=== PATIENT | female | born 1955 | race Caucasian/White ===

== ENCOUNTER 2017-04-12 11:45 | Inpatient (IN) | payer OTHER ==
[2017-04-12] MEDS ORDERED: Lorazepam 2 MG/ML VIAL ONE ×2 (11:55→12:36)
[2017-04-12] MEDS ORDERED: Haloperidol Lactate 5 MG/ML VIAL ONE ×2 (12:23→12:56)
[2017-04-12 12:47] LABS: #Eosinphils 0.1 thou/uL (0.0-0.7); #Lymphocytes 1.6 thou/uL (1.20-3.40); #Monocytes 1.1 thou/uL (0.11-0.59); #Neutrophils 5.2 thou/uL (1.40-6.50); %Basophils 0.6 % (0.0-1.0); %Eosinophils 0.6 % (0.0-10.0); %Lymphocytes 19.8 % (21.0-51.0); %Monocytes 13.4 % (0.0-10.0); Hematocrit 35.7 % (36.0-47.0); Mean Platelet Volume 7.4 fL (7.4-10.4); Red Blood Cell (RBC) Count 4.69 mill/uL (4.20-5.40)
[2017-04-12 13:03] LABS: ALT (SGPT) 28 U/L (8-55); AST (SGOT) 39 U/L (5-34); Alkaline Phosphatase 193 U/L (40-150); Anion Gap 21 mmol/L (10-20); BUN (Urea Nitrogen) 4 mg/dL (9.8-20.1); Bilirubin, Total 0.4 mg/dL (0.2-1.2); Calc. Creatinine Clearance 0 mL/min (70-130); Calcium 9.1 mg/dL (7.8-10.44); Carbon Dioxide 18 mmol/L (22-29); Chloride 93 mmol/L (98-107); Estimated GFR-MDRD 82; Globulin 3.8 g/dL (2.4-3.5); Protein, Total 7.6 g/dL (6.0-8.3)
[2017-04-12 13:09] LABS: Troponin I Less than 0.010 ng/mL (< 0.028)
--- NOTE | 2017-04-12 15:31 | CT ---
CT HEAD NONCONTRAST: HISTORY: Seizure. COMPARISON: 09/11/13. FINDINGS: No acute intracranial hemorrhage or infarct are apparent. Postoperative and posttraumatic changes o f the left cranium and cerebrum are similar in appearance to the prior study with intracranial embed ded metallic foreign bodies. There is no mass effect or shift of midline structures. Visualized pa ranasal sinuses remain well aerated. IMPRESSION: Chronic-type findings are stable. No acute intracranial abnormalities are demonstrated on noncontra st CT head. POS: [facility]
[2017-04-12 16:31] LABS: Bilirubin Negative (Negative); Blood, Urine Negative (Negative); Glucose, Urine (Dipstick) Negative (Negative); Ketone, Urine Negative (Negative); Nitrite Negative (Negative); Protein, Urine (Dipstick) Negative (Neg-Trace); Urobilinogen 0.2 mg/dL (0.2-1.0)
[2017-04-12 16:34] LABS: Bacteria/HPF None Seen HPF (None Seen); Hyaline Casts/LPF 0-3 HYALINE CAST LPF (0-3 Hyaline); RBC/HPF None Seen HPF (0-3); Squamous Epithelial 0-3 HPF (0-3); WBC/HPF 0-3 HPF (0-3)
[2017-04-12 16:47] LABS: Amphetamine Not Detected (NotDetected); Methadone Not Detected (NotDetected); Methamphetamine Not Detected (NotDetected)
[2017-04-12] MEDS ORDERED: Ziprasidone 20 MG VIAL IM PRN (17:25)
--- NOTE | 2017-04-12 17:45 | PDOC.EVN ---
Event Note - Event Note Event Note: pt seen and examined , H & P dictated # [id number]
[2017-04-12] MEDS ORDERED: Digoxin 0.5 MG/2 ML AMP SLOW IVP SCH (18:15)
[2017-04-12] MEDS ORDERED: Ondansetron ODT 4 MG TAB SL PRN (18:58)
[2017-04-12] MEDS ORDERED: Ondansetron HCl/PF 4 MG/2 ML Vial IVP PRN (18:58)
[2017-04-12] MEDS ORDERED: Acetaminophen 325 MG TAB PO PRN (18:58)
--- NOTE | 2017-04-12 19:01 | PDOC.EVN ---
Event Note - Event Note Event Note: UDS results noted. BP improved but pt noted to have A fib with RVR. we will give IV digoxin and move her to IMCU.
[2017-04-12] MEDS: Sodium Chloride 0.9% 1,000 ML IV SCH (19:06)
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
[2017-04-12 21:32] LABS: #Lymphocytes 1.2 thou/uL (1.20-3.40); #Neutrophils 6.9 thou/uL (1.40-6.50); %Basophils 0.1 % (0.0-1.0); %Eosinophils 0.2 % (0.0-10.0); %Lymphocytes 13.2 % (21.0-51.0); %Monocytes 10.7 % (0.0-10.0); Mean Platelet Volume 7.3 fL (7.4-10.4); Red Blood Cell (RBC) Count 4.47 mill/uL (4.20-5.40); White Blood Cell (WBC) Count 9.2 thou/uL (4.8-10.8)
[2017-04-12 21:49] LABS: Anion Gap 11 mmol/L (10-20); BUN (Urea Nitrogen) Less than 4 mg/dL (9.8-20.1); Calc. Creatinine Clearance 132 mL/min (70-130); Calcium 8.4 mg/dL (7.8-10.44); Carbon Dioxide 23 mmol/L (22-29); Chloride 102 mmol/L (98-107); Estimated GFR-MDRD Greater than 90
[2017-04-13] MEDS: Sodium Chloride 0.9% 1,000 ML IV SCH ×3 (04:07→21:02)
[2017-04-13] MEDS ORDERED: FLU VACC QS2017-18 36 mo. & older 0.5 ML SYRINGE IM ONE (09:00)
[2017-04-13] MEDS ORDERED: HYDROcodone/Acetaminophen 5/325 mg Tablet PO SCH (11:00)
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
[2017-04-13] MEDS: Isosorbide Mononitrate 20 MG TAB PO SCH (21:03)
[2017-04-13] MEDS: Atorvastatin Calcium 20 MG TAB PO SCH (21:03)
[2017-04-13] MEDS: Nicotine 21 MG PATCH TOP SCH (23:23)
[2017-04-14] MEDS: Lisinopril 5 MG TAB PO SCH (07:43)
[2017-04-14] MEDS: Isosorbide Mononitrate 20 MG TAB PO SCH ×2 (07:48→20:37)
[2017-04-14] MEDS: Sodium Chloride 0.9% 1,000 ML IV SCH ×2 (09:12→20:37)
--- NOTE | 2017-04-14 11:29 | PRG ---
DATE OF SERVICE: 04/14/2017 She was seen this morning. She wanted a sleeping pill. She says she only slept 3 hours last night. I have explained to her that she overdosed and she argued with me, stating that that would be impo ssible. I suspect the primary culprit with her overdose was Soma. PHYSICAL EXAMINATION: VITAL SIGNS: She is afebrile, heart rate is 90, respiratory rate 18, oximetry 92 on room air. Bloo d pressure 131/83. LUNGS: Clear. HEART: Regular rhythm. IMPRESSION: Inadvertent overdoses with a history of injudicious use of her pain meds. She really needs somebody managing her meds on a daily basis in my opinion. I have not seen any fam ortiz here since she has been here. She is medically stable at this point, so we will sign off.
[2017-04-14] MEDS: ALPRAZolam 0.5 MG TAB PO PRN ×2 (13:49→20:44)
--- NOTE | 2017-04-14 15:25 | PDOC.PN ---
- Subjective Encounter Start Date: 04/14/17 Encounter Start Time: 13:00 Subjective: is ambulating -: wants her xanax and norco re-instituted -: no sob - Objective MAR Reviewed: Yes Vital Signs & Weight: Vital Signs (12 hours) Temp Pulse Resp BP BP Pulse Ox 04/14/17 12:01 98.3 F 74 18 151/81 H 92 L 04/14/17 11:42 77 18 93 L 04/14/17 08:00 99.5 F 90 18 131/83 92 L 04/14/17 07:59 98.4 F 98 16 159/84 H 96 04/14/17 07:43 70 159/84 H 04/14/17 06:48 70 18 94 L 04/14/17 03:24 98.3 F 72 18 155/72 H 95 Weight Weight 171 lb 9.584 oz I&O: 04/13/17 04/14/17 04/15/17 06:59 06:59 06:59 Intake Total 1820 Balance 1820 Result Diagrams: 04/12/17 21:22 04/12/17 21:22 Phys Exam - Physical Examination HEENT: PERRLA, moist MMs Neck: no JVD, supple Respiratory: no wheezing, no rales Cardiovascular: RRR, no significant murmur Gastrointestinal: soft, non-tender, positive bowel sounds Musculoskeletal: no edema, pulses present Neurological: non-focal, moves all 4 limbs Psychiatric: A&O x 3 Dx/Plan (1) Drug overdose Code(s): T50.901A - POISONING BY UNSP DRUG/MEDS/BIOL SUBST, ACCIDENTAL, INIT Status: Acute (2) Afib Code(s): I48.91 - UNSPECIFIED ATRIAL FIBRILLATION Status: Chronic Qualifiers: Atrial fibrillation type: paroxysmal Qualified Code(s): I48.0 - Paroxysmal atrial fibrillation (3) Toxic encephalopathy Code(s): G92 - TOXIC ENCEPHALOPATHY Status: Resolved (4) Anemia Code(s): D64.9 - ANEMIA, UNSPECIFIED Status: Chronic Qualifiers: Anemia type: unspecified cause Qualified Code(s): D64.9 - Anemia, unspecified (5) GERD (gastroesophageal reflux disease) Code(s): K21.9 - GASTRO-ESOPHAGEAL REFLUX DISEASE WITHOUT ESOPHAGITIS Status: Chronic (6) HLD (hyperlipidemia) Code(s): E78.5 - HYPERLIPIDEMIA, UNSPECIFIED Status: Chronic (7) Hepatitis C Code(s): B19.20 - UNSPECIFIED VIRAL HEPATITIS C WITHOUT HEPATIC COMA Status: Chronic Qualifiers: Viral hepatitis chronicity: chronic Hepatic coma status: without hepatic coma Qualified Code(s): B18.2 - Chronic viral hepatitis C (8) Tobacco abuse Code(s): Z72.0 - TOBACCO USE Status: Chronic (9) CAD (coronary artery disease) Code(s): I25.10 - ATHSCL HEART DISEASE OF [place] CORONARY ARTERY W/O ANG PCTRS Status: Chronic Qualifiers: Coronary Disease-Associated Artery/Lesion type: [place] artery [place] vs. transplanted heart: [place] heart Associated angina: without angina Qualified Code(s): I25.10 - Atherosclerotic heart disease of [place] coronary artery without angina pectoris (10) Chronic pain disorder Status: Chronic (11) Dyslipidemia Code(s): E78.5 - HYPERLIPIDEMIA, UNSPECIFIED Status: Chronic (12) Grand mal seizure disorder Code(s): G40.409 - OTH GENERALIZED EPILEPSY, NOT INTRACTABLE, W/O STAT EPI Status: Chronic Comment: sec to prior brain surgery on her left side, stable (13) HTN (hypertension) Code(s): I10 - ESSENTIAL (PRIMARY) HYPERTENSION Status: Chronic Qualifiers: Hypertension type: essential hypertension Qualified Code(s): I10 - Essential (primary) hypertension - Plan is awake and oriented now -: counselled reg psychotropic meds -: still wants her xanax and norco -: dc plan in am -: she needs to f/u with her pcp in 1 week * . Review of Systems - Medications/Allergies Allergies/Adverse Reactions: Allergies Allergy/AdvReac Type Severity Reaction Status Date / Time Penicillins Allergy Verified 04/12/17 22:08 Medications: Current Medications Hydrocodone Bitart/Acetaminophen ([place] 7.5/325) 1 tab PO Q4H PRN PRN Reason: Mild Pain (1-3) Albuterol/Ipratropium (Duoneb) 3 ml NEB [id number] LEIF Last Admin: 04/14/17 11:42 Dose: 3 ml Albuterol/Ipratropium (Duoneb) 3 ml NEB Q2H PRN PRN Reason: SOB &/or Wheezing Alprazolam (Xanax) 0.5 mg PO TIDPRN PRN PRN Reason: Anxiety Last Admin: 04/14/17 13:49 Dose: 0.5 mg Atorvastatin Calcium (Lipitor) 20 mg PO HS [facility] Last Admin: 04/13/17 21:03 Dose: 20 mg Carisoprodol (Soma) 350 mg PO BID [facility] Last Admin: 04/14/17 09:09 Dose: 350 mg Diltiazem HCl (Cardizem Cd) 180 mg PO DAILY [facility] Last Admin: 04/14/17 07:41 Dose: 180 mg Sodium Chloride (Normal Saline 0.9%) 1,000 mls @ 100 mls/hr IV .Q10H [facility] Last Admin: 04/14/17 09:12 Dose: 1,000 mls Isosorbide Mononitrate (Ismo) 10 mg PO BID [facility] Last Admin: 04/14/17 07:48 Dose: 10 mg Lisinopril (Zestril) 5 mg PO DAILY [facility] Last Admin: 04/14/17 07:43 Dose: 5 mg Nicotine (Nicoderm Patch) 21 mg TOP Q24HR [facility] Last Admin: 04/13/17 23:23 Dose: Not Given Pantoprazole Sodium (Protonix) 40 mg PO DAILY [facility] Last Admin: 04/14/17 07:49 Dose: 40 mg Phenytoin Sodium (Dilantin) 100 mg PO TID [facility] Last Admin: 04/14/17 13:48 Dose: 100 mg Sertraline HCl (Zoloft) 100 mg PO DAILY [facility] Last Admin: 04/14/17 07:48 Dose: 100 mg Sodium Chloride (Flush - Normal Saline) 10 ml IVF Q12HR [facility] Last Admin: 04/14/17 07:49 Dose: Not Given Sodium Chloride (Flush - Normal Saline) 10 ml IVF PRN PRN PRN Reason: Saline Flush
[2017-04-14] MEDS: HYDROcodone/Acetaminophen 7.5/325 mg Tablet PO PRN ×2 (15:27→20:44)
[2017-04-14] MEDS: Nicotine 21 MG PATCH TOP SCH (19:08)
[2017-04-14] MEDS: Atorvastatin Calcium 20 MG TAB PO SCH (20:37)
[2017-04-15] MEDS: Sodium Chloride 0.9% 1,000 ML IV SCH (04:03)
[2017-04-15 04:17] VITALS: BMI 28.6
[2017-04-15] MEDS: ALPRAZolam 0.5 MG TAB PO PRN ×2 (07:38→13:13)
[2017-04-15] MEDS: HYDROcodone/Acetaminophen 7.5/325 mg Tablet PO PRN ×2 (07:38→13:12)
[2017-04-15] MEDS: Lisinopril 5 MG TAB PO SCH (07:38)
[2017-04-15] MEDS: Isosorbide Mononitrate 20 MG TAB PO SCH (07:39)
[2017-04-15 07:42] VITALS: BP 162/62; TEMP 97.9
--- NOTE | 2017-04-15 12:26 | PDOC.PN ---
- Subjective Encounter Start Date: 04/15/17 Encounter Start Time: 10:20 Subjective: no sob, is amb well - Objective MAR Reviewed: Yes Vital Signs & Weight: Vital Signs (12 hours) Temp Pulse Resp BP Pulse Ox 04/15/17 08:00 97.9 F 50 L 16 04/15/17 07:41 97.9 F 50 L 16 162/62 H 100 04/15/17 07:38 70 04/15/17 07:18 78 18 97 04/15/17 01:32 98 Weight Weight 171 lb 13.746 oz I&O: 04/14/17 04/15/17 04/16/17 06:59 06:59 06:59 Intake Total 1350 Balance 1350 Result Diagrams: 04/12/17 21:22 04/12/17 21:22 Phys Exam - Physical Examination HEENT: PERRLA, moist MMs Neck: no JVD, supple Respiratory: no wheezing, no rales Cardiovascular: RRR, no significant murmur Gastrointestinal: soft, non-tender, positive bowel sounds Musculoskeletal: no edema, pulses present Neurological: non-focal, moves all 4 limbs Psychiatric: A&O x 3 Dx/Plan (1) Drug overdose Code(s): T50.901A - POISONING BY UNSP DRUG/MEDS/BIOL SUBST, ACCIDENTAL, INIT Status: Acute (2) Afib Code(s): I48.91 - UNSPECIFIED ATRIAL FIBRILLATION Status: Chronic Qualifiers: Atrial fibrillation type: paroxysmal Qualified Code(s): I48.0 - Paroxysmal atrial fibrillation (3) Toxic encephalopathy Code(s): G92 - TOXIC ENCEPHALOPATHY Status: Resolved (4) Anemia Code(s): D64.9 - ANEMIA, UNSPECIFIED Status: Chronic Qualifiers: Anemia type: unspecified cause Qualified Code(s): D64.9 - Anemia, unspecified (5) GERD (gastroesophageal reflux disease) Code(s): K21.9 - GASTRO-ESOPHAGEAL REFLUX DISEASE WITHOUT ESOPHAGITIS Status: Chronic (6) HLD (hyperlipidemia) Code(s): E78.5 - HYPERLIPIDEMIA, UNSPECIFIED Status: Chronic (7) Hepatitis C Code(s): B19.20 - UNSPECIFIED VIRAL HEPATITIS C WITHOUT HEPATIC COMA Status: Chronic Qualifiers: Viral hepatitis chronicity: chronic Hepatic coma status: without hepatic coma Qualified Code(s): B18.2 - Chronic viral hepatitis C (8) Tobacco abuse Code(s): Z72.0 - TOBACCO USE Status: Chronic (9) CAD (coronary artery disease) Code(s): I25.10 - ATHSCL HEART DISEASE OF [place] CORONARY ARTERY W/O ANG PCTRS Status: Chronic Qualifiers: Coronary Disease-Associated Artery/Lesion type: [place] artery [place] vs. transplanted heart: [place] heart Associated angina: without angina Qualified Code(s): I25.10 - Atherosclerotic heart disease of [place] coronary artery without angina pectoris (10) Chronic pain disorder Status: Chronic (11) Dyslipidemia Code(s): E78.5 - HYPERLIPIDEMIA, UNSPECIFIED Status: Chronic (12) Grand mal seizure disorder Code(s): G40.409 - OTH GENERALIZED EPILEPSY, NOT INTRACTABLE, W/O STAT EPI Status: Chronic Comment: sec to prior brain surgery on her left side, stable (13) HTN (hypertension) Code(s): I10 - ESSENTIAL (PRIMARY) HYPERTENSION Status: Chronic Qualifiers: Hypertension type: essential hypertension Qualified Code(s): I10 - Essential (primary) hypertension - Plan hemostable -: is fully oriented and amb well -: dc pt home * .
[2017-04-15] MEDS ORDERED: Mag-Al 1200 mg/1200 mg/30 ML UDCUP PO SCH (16:45)
--- NOTE | 2017-04-15 23:28 | DIS ---
DATE OF ADMISSION: 04/12/2017 DATE OF DISCHARGE: 04/15/2017 DISCHARGE DISPOSITION: To home. PRIMARY DISCHARGE DIAGNOSES: Drug overdose with encephalopathy, resolved, chronic atrial fibrillati on, anemia, dyslipidemia, possible hepatitis C, gastroesophageal reflux disease, tobacco abuse, juan nary artery disease, chronic pain syndrome, dyslipidemia, history of seizure disorder with prior bra in surgery on the left side, hypertension. PROCEDURES DONE DURING HOSPITALIZATION: The patient has had CT brain done, which showed chronic fin dings with no acute abnormalities seen. Discharge H\T\H 10 and 34 with platelet count of 302, MCV o f 76. Initial sodium of 127 with discharge numbers of 132. Urine tox screen was positive for nancy turates and benzodiazepines. DISCHARGE MEDICATIONS: Atorvastatin 20 mg p.o. daily, Soma 350 mg p.o. 3 times daily, Cardizem CD 1 80 mg p.o. daily, Imdur extended release 30 mg p.o. daily, lisinopril 5 mg p.o. daily, Protonix 40 m g p.o. daily, Dilantin 200 mg q.a.m. and 100 mg p.o. at bedtime, rizatriptan p.r.n. for migraine, Zo loft 100 mg p.o. daily, zonisamide 100 mg p.o. at bedtime. ALLERGIES: To PENICILLIN. DISCHARGE PLAN: Patient to follow up with primary care physician in 1 week. BRIEF COURSE DURING HOSPITALIZATION: The patient initially was brought to emergency room for silverio d mental state. She was agitated when EMS arrived and the patient's niece had told EMS that she had taken a lot of Soma. In view of this possible overdose, the patient was placed in IMCU and later d owngraded to medical floor. Twenty-four hours into hospitalization with gentle hydration, the patie nt became oriented. She was closely monitored for another 24 hours. All her labs including sodium levels have normalized. She is ambulating and eating well prior to discharge. She needs to follow up with her primary care physician in 1 week. She was counseled with regards to narcotic use along with psychotropic medications. She was also evaluated by Dr. Bergeron when she was in [facility]. She is he modynamically stable and will be shortly discharged home. Please see a [id number] documentation o [facility] for the day of discharge.
== END 2017-04-15 17:40 | disposition home or self-care (01) | DRG 917 ==
LOC: ERS 11:45 → T4-A 18:07 → IMCU/EMU 18:53 → T4-B 04-13 18:45
PROVIDERS: ADMIT Internal Medicine; ATTEND Internal Medicine
DX: T42.8X1A Poisoning by antiparkinsonism drugs and other central muscle-tone depressants, accidental (unintentional), initial encounter (principal); G92 Toxic encephalopathy; E88.89 Other specified metabolic disorders; E87.1 Hypo-osmolality and hyponatremia; K74.60 Unspecified cirrhosis of liver; I10 Essential (primary) hypertension; I48.0 Paroxysmal atrial fibrillation; F10.10 Alcohol abuse, uncomplicated; D50.9 Iron deficiency anemia, unspecified; G40.409 Other generalized epilepsy and epileptic syndromes, not intractable, without status epilepticus; F32.9 Major depressive disorder, single episode, unspecified; E86.0 Dehydration; B19.20 Unspecified viral hepatitis C without hepatic coma; G89.4 Chronic pain syndrome; Z90.710 Acquired absence of both cervix and uterus; Z90.721 Acquired absence of ovaries, unilateral; Z88.0 Allergy status to penicillin; Z72.0 Tobacco use; F19.10 Other psychoactive substance abuse, uncomplicated; R00.0 Tachycardia, unspecified; S80.819A Abrasion, unspecified lower leg, initial encounter; I25.10 Atherosclerotic heart disease of native coronary artery without angina pectoris; Z91.14 Patient's other noncompliance with medication regimen; T73.0XXA Starvation, initial encounter; K21.9 Gastro-esophageal reflux disease without esophagitis; E78.5 Hyperlipidemia, unspecified
CPT/HCPCS: 36415; 51701; 70450; 80053; 80306; 81003; 81015; 82140; 82553; 84484; 85025; 90471; 90682; 93005; 94640; 94760; 96361; 96372; 96374; 96376; A4216; A4353; G0008; J1630; J2060; J7620; Q2036

== ENCOUNTER 2017-06-09 09:19 | Emergency (ER) | payer OTHER ==
[2017-06-09] MEDS ORDERED: traMADol HCl 50 MG TAB ONE (10:34)
--- NOTE | 2017-06-09 10:38 | RAD ---
THREE VIEWS OF THE LEFT WRIST: DATE: 06/09/17. COMPARISON: None. HISTORY: Wrist pain, fall. FINDINGS: There is a mildly impacted distal left radial fracture. There is minimal dorsal displacement with no evidence for angulation. No definite extension into the radiocarpal joint. There is a probable ass ociated nondisplaced fracture at the base of the ulnar styloid. There is significant soft tissue swe lling. IMPRESSION: Distal left radial fracture without dislocation. Question subtle nondisplaced fracture at base of ul baudilio styloid. POS: [facility]
== END 2017-06-09 16:48 | disposition home or self-care (01) ==
LOC: ERS 09:19
DX: S52.502A Unspecified fracture of the lower end of left radius, initial encounter for closed fracture (principal); I10 Essential (primary) hypertension; E78.5 Hyperlipidemia, unspecified; F17.210 Nicotine dependence, cigarettes, uncomplicated; F41.9 Anxiety disorder, unspecified; W11.XXXA Fall on and from ladder, initial encounter
CPT/HCPCS: 29125

== ENCOUNTER 2017-07-03 21:58 | Emergency (ER) | payer OTHER ==
[2017-07-03 23:16] LABS: Bilirubin Negative (Negative); Blood, Urine Negative (Negative); Clarity CLEAR (Clear); Glucose, Urine (Dipstick) Negative (Negative); Leukocyte Negative (Negative); Nitrite Negative (Negative); Protein, Urine (Dipstick) Negative (Neg-Trace); Specific Gravity, Urine 1.012 (1.002-1.036); Urobilinogen 0.2 mg/dL (0.2-1.0); pH, Urine 6.5 (5.0-9.0)
--- NOTE | 2017-07-03 23:16 | CT ---
CT OF BRAIN PERFORMED WITHOUT CONTRAST ENHANCEMENT: 07/03/17 HISTORY: Altered mental status. Patient found unresponsive. The exam was done as a helical study due to patient's inability to cooperate. COMPARISON: 04/12/17 study. Left sided frontal temporal craniotomy changes noted with underlying encephalomalacia change stable a s compared to the prior examination. Metallic artifact is again demonstrated. There are no signs of i ntracerebral hemorrhage, or extra-axial fluid collections. Mastoid air cells and visualized sinuses a re clear. IMPRESSION: No acute intracranial abnormalities. Postoperative changes. POS: [facility]
[2017-07-03 23:18] LABS: Band 1 % (5-11); Eosinophils 2 % (0-10); Hemoglobin 10.5 g/dL (12.0-16.0); Lymphocytes 39 % (21-51); MDiff Complete? YES; Mean Corpuscular HGB CONC 31.5 g/dL (32.0-36.0); Mean Corpuscular Hemoglobin 24.7 pg (27.0-31.0); Mean Corpuscular Volume 78.4 fl (81.0-99.0); Mean Platelet Volume 7.2 fL (7.4-10.4); Monocytes 11 % (0-10); Neutrophil 47 % (42-75); PLT Morphology Comment Appears Adequate; Platelet Count 287 thou/uL (130-400); RBC Distribution Width 17.4 % (11.5-14.5); Red Blood Cell (RBC) Count 4.24 mill/uL (4.20-5.40); White Blood Cell (WBC) Count 6.4 thou/uL (4.8-10.8)
--- NOTE | 2017-07-03 23:19 | CT ---
CT OF CERVICAL SPINE PERFORMED WITHOUT CONTRAST ENHANCEMENT: 07/03/17 HISTORY: Neck pain. Altered mental status. Vertebral bodies are normal in height. Degenerative disc narrowing is seen at the C3-4 and C5-6 level s. There are moderate degenerative facet changes. The facets are in normal alignment. Left sided foraminal narrowing at C3-4 and right sided foraminal narrowing at C4-5. There is mild can al stenosis and bilateral foraminal narrowing at C5-6. There is no CT evidence for fracture. The lung apices show emphysematous change. IMPRESSION: No CT evidence of fracture. Arthritic changes as discussed above. POS: [facility]
[2017-07-03 23:20] LABS: Acetaminophen Less than 6.0 mcg/mL (10.0-30.0); Alcohol Less than 10 mg/dL (Less than 10); Salicylate Less than 8.0 mg/dL (15.0-30.0)
[2017-07-03 23:21] LABS: ALT (SGPT) 35 U/L (8-55); AST (SGOT) 36 U/L (5-34); Albumin 3.6 g/dL (3.5-5.0); Alkaline Phosphatase 181 U/L (40-150); Anion Gap 12 mmol/L (10-20); BUN (Urea Nitrogen) 8 mg/dL (9.8-20.1); Bilirubin, Total 0.3 mg/dL (0.2-1.2); CK (CPK) 51 U/L (29-168); Calc. Creatinine Clearance 0 mL/min (70-130); Carbon Dioxide 23 mmol/L (22-29); Chloride 93 mmol/L (98-107); Estimated GFR-MDRD Greater than 90; Globulin 3.1 g/dL (2.4-3.5); Glucose 94 mg/dL (70-105); Potassium 3.6 mmol/L (3.5-5.1); Protein, Total 6.7 g/dL (6.0-8.3); Sodium 124 mmol/L (136-145)
[2017-07-03 23:23] LABS: CKMB 0.9 ng/mL (0-6.6); Troponin I 0.014 ng/mL (< 0.028)
[2017-07-03 23:33] LABS: Cocaine Metabolite Screen Not Detected (NotDetected); Medtox Reader # READER 1; Methamphetamine Not Detected (NotDetected); Phencyclidine (PCP) Not Detected (NotDetected); THC/Cannabinoid Screen Not Detected (NotDetected)
[2017-07-03] MEDS ORDERED: Ketorolac Tromethamine 30 MG/ML VIAL ONE (23:33)
[2017-07-03 23:34] LABS: Amphetamine Not Detected (NotDetected); Barbiturates Screen Detected (NotDetected); Benzodiazepine Screen Detected (NotDetected); Medtox Control Line Valid? VALID (VALID); Methadone Not Detected (NotDetected); Opiate Screen Detected (NotDetected); Oxycodone Screen Not Detected (NotDetected); Tricyclic Screen Detected (NotDetected)
== END 2017-07-04 02:04 | disposition home or self-care (01) ==
LOC: ERS 21:58
DX: R53.83 Other fatigue (principal); I10 Essential (primary) hypertension; E78.5 Hyperlipidemia, unspecified; F41.9 Anxiety disorder, unspecified; F17.210 Nicotine dependence, cigarettes, uncomplicated
CPT/HCPCS: 36415; 70450; 72125; 80053; 80306; 80307; 81003; 82553; 84484; 85025; 87086; 96361; 96374; J1885

== ENCOUNTER 2017-11-26 15:44 | Inpatient (IN) | payer OTHER ==
[2017-11-26] MEDS ORDERED: Sodium Bicarb 50 MEQ/50 ML Abboject 8.4% SYRINGE ONE (15:53)
[2017-11-26 15:58] LABS: CO2 Tension 34.4 mmHg (35.0-45.0); O2 Tension (PaO2) 226.2 mmHg (80.0-100.0); pH, Arterial 7.17 (7.35-7.45)
[2017-11-26 15:59] LABS: Actual Bicarbonate (HCO3a) 12.2 mEq/L (22-26); Base Excess (BEa) -15.4 mEq/L (0 (+/-) 2.5)
[2017-11-26 16:00] LABS: Analyzer IN Cardio ER; Puncture Site RRA
[2017-11-26 16:04] LABS: #Basophils 0.1 thou/uL (0.0-0.2); #Eosinphils 0.1 thou/uL (0.0-0.7); #Lymphocytes 3.1 thou/uL (1.20-3.40); #Monocytes 0.8 thou/uL (0.11-0.59); #Neutrophils 5.5 thou/uL (1.40-6.50); %Basophils 0.6 % (0.0-1.0); %Eosinophils 0.8 % (0.0-10.0); %Lymphocytes 32.3 % (21.0-51.0); %Monocytes 8.8 % (0.0-10.0); %Neutrophils 57.5 % (42.0-75.0); Hemoglobin 12.8 g/dL (12.0-16.0); Mean Corpuscular HGB CONC 32.5 g/dL (32.0-36.0); Mean Corpuscular Hemoglobin 27.3 pg (27.0-31.0); Mean Platelet Volume 6.8 fL (7.4-10.4); Platelet Count 330 thou/uL (130-400); RBC Distribution Width 14.1 % (11.5-14.5); Red Blood Cell (RBC) Count 4.68 mill/uL (4.20-5.40); White Blood Cell (WBC) Count 9.6 thou/uL (4.8-10.8)
[2017-11-26 16:07] LABS: Base Excess-Venous -16.5 mmol/L (0 (+/- 2.5)); Bicarbonate (HCO3v) 10.7 mmol/L (1.0-85.0); CO2 Tension (PvCO2) 29.5 mmHg (41.0-51.0); Calcium, Ionized 1.13 mmol/L (1.12-1.32); Hemoglobin - Calc 14.8 g/dL (12.0-18.0); Lactate 8.23 mmol/L (0.50-2.20); O2 Tension (PvO2) 121.4 mmHg (35.0-45.0); Potassium 4.6 mmol/L (3.4-4.7); T. Carbon Dioxide 11.6 mmol/L (1.0-85.0); pH (Venous) 7.168 (7.35-7.45); vO2 Saturation-calc 97.6 % (94-98)
[2017-11-26] MEDS ORDERED: Norepinephrine 8 MG/0.9% NS 250 ML ONE (16:15)
[2017-11-26] MEDS ORDERED: fentaNYL Citrate/PF 2,000 MCG in Sodium Chloride 0.9% 60 ML IV SCH (16:15)
[2017-11-26 16:24] LABS: Acetaminophen Less than 6.0 mcg/mL (10.0-30.0); Alcohol Less than 10 mg/dL (Less than 10); Salicylate Less than 8.0 mg/dL (15.0-30.0)
[2017-11-26 16:26] LABS: ALT (SGPT) 37 U/L (8-55); AST (SGOT) 48 U/L (5-34); Albumin 2.9 g/dL (3.5-5.0); Alkaline Phosphatase 152 U/L (40-150); Anion Gap 16 mmol/L (10-20); BUN (Urea Nitrogen) 9 mg/dL (9.8-20.1); Bilirubin, Total 0.3 mg/dL (0.2-1.2); Calc. Creatinine Clearance 0 mL/min (70-130); Calcium 8.3 mg/dL (7.8-10.44); Carbon Dioxide 10 mmol/L (22-29); Chloride 89 mmol/L (98-107); Estimated GFR-MDRD 76; Globulin 2.2 g/dL (2.4-3.5); Glucose 214 mg/dL (70-105); Potassium 4.8 mmol/L (3.5-5.1); Protein, Total 5.1 g/dL (6.0-8.3)
--- NOTE | 2017-11-26 16:27 | RAD ---
CHEST ONE VIEW: History: Altered mental status. Dyspnea. Comparison: 06-17-17 FINDINGS: Cardiac silhouette is magnified and upper limits of normal. Pulmonary vasculature is engorged with bi lateral upper lobe infiltrate and patchy bibasilar infiltrates. Mediastinum midline. Tip of an endotr acheal catheter overlies the thoracic inlet. No evidence of pneumothorax. Defibrillator patch overlie s the right upper chest. IMPRESSION: 1. Bilateral upper lobe infiltrates are favored to be related to pulmonary edema. 2. Endotracheal catheter is in good radiographic position. POS: [facility]
[2017-11-26 16:29] LABS: CKMB 3.4 ng/mL (0-6.6); Troponin I 0.029 ng/mL (< 0.028)
[2017-11-26 16:37] LABS: Sodium 110 mmol/L (136-145)
[2017-11-26] MEDS ORDERED: Levofloxacin 500 mg/D5W 100 ml Premix Bag ONE (16:47)
[2017-11-26 17:36] LABS: Bilirubin Negative (Negative); Blood, Urine Trace (Negative); Clarity CLEAR (Clear); Glucose, Urine (Dipstick) Negative (Negative); Leukocyte Negative (Negative); Nitrite Negative (Negative); Protein, Urine (Dipstick) 100 mg/dL (Neg-Trace); Specific Gravity, Urine 1.012 (1.002-1.036); Urobilinogen 0.2 mg/dL (0.2-1.0)
[2017-11-26 17:43] LABS: Bacteria/HPF None Seen HPF (None Seen); Hyaline Casts/LPF 4-6 HYALINE CAST LPF (0-3 Hyaline); Pathc Cast-AUWi Flag 0.87 (0-2.49); RBC/HPF 0-3 HPF (0-3); Squamous Epithelial 0-3 HPF (0-3); WBC/HPF 0-3 HPF (0-3)
[2017-11-26 17:46] LABS: Amphetamine Not Detected (NotDetected); Benzodiazepine Screen Not Detected (NotDetected); Cocaine Metabolite Screen Not Detected (NotDetected); Medtox Reader # READER 4; Methamphetamine Not Detected (NotDetected); Opiate Screen Not Detected (NotDetected); Phencyclidine (PCP) Not Detected (NotDetected); Renal Epithelial None Seen HPF (0-3); THC/Cannabinoid Screen Not Detected (NotDetected); Transitional Epithelial NONE SEEN HPF (0-3); Tricyclic Screen Not Detected (NotDetected)
[2017-11-26 17:47] LABS: Barbiturates Screen Detected (NotDetected); Medtox Control Line Valid? VALID (VALID); Methadone Not Detected (NotDetected); Oxycodone Screen Not Detected (NotDetected)
[2017-11-26] MEDS ORDERED: levETIRAcetam 500 MG/100 ML PREMIX BAG ONE (18:29)
[2017-11-26] MEDS ORDERED: Lorazepam 2 MG/ML VIAL ONE (18:29)
[2017-11-26] MEDS ORDERED: levETIRAcetam In NaCl (Iso-Os) 1,000 MG in Premix Bag 1 BAG IVPB SCH (18:45)
[2017-11-26 19:45] LABS: Troponin I 0.175 ng/mL (< 0.028)
[2017-11-26] MEDS ORDERED: Sodium Chloride 0.9% 1,000 ML IV SCH ×2 (19:45→23:45)
[2017-11-26] MEDS ORDERED: Ondansetron ODT 4 MG TAB PO PRN (19:52)
[2017-11-26] MEDS ORDERED: Ventilator Sedation Protocol 1 EACH FS ONE (19:52)
[2017-11-26] MEDS ORDERED: Clindamycin/D5W 300 MG/50 ML BAG IVPB SCH (19:52)
[2017-11-26] MEDS ORDERED: Acetaminophen 650 MG Suppository PR PRN (19:52)
[2017-11-26] MEDS ORDERED: Dextrose 5% in Water 1,000 ML IV PRN (19:52)
[2017-11-26] MEDS ORDERED: Dextrose 50% Abboject 50 ML SYRINGE SLOW IVP PRN (19:52)
[2017-11-26] MEDS ORDERED: Ondansetron HCl/PF 4 MG/2 ML Vial IVP PRN (19:52)
[2017-11-26 19:59] LABS: Lactic Acid 3.3 mmol/L (0.5-2.2)
[2017-11-26] MEDS ORDERED: Fentanyl BOLUS 250 ML IVPB PRN (20:03)
[2017-11-26] MEDS ORDERED: Propofol BOLUS 1,000 MG/100 ML VIAL IV PRN (20:03)
[2017-11-26] MEDS ORDERED: DISCONTINUE PREVIOUS NARCOTIC PAIN MEDICATIONS AND BENZODIAZEPINES FS SCH (20:03)
[2017-11-26] MEDS ORDERED: Propofol 1,000 MG/100 ML VIAL IV PRN (20:03)
[2017-11-26] MEDS: Clindamycin/D5W 900 MG in Premix Bag 1 BAG IVPB SCH (20:09)
[2017-11-26] MEDS: Lorazepam 2 MG/ML VIAL SLOW IVP PRN (20:10)
[2017-11-26] MEDS: Sodium Chloride 0.9% 1,000 ML IV SCH (20:14)
[2017-11-26 20:24] LABS: ALT (SGPT) 47 U/L (8-55); AST (SGOT) 70 U/L (5-34); Albumin 3.2 g/dL (3.5-5.0); Alkaline Phosphatase 165 U/L (40-150); Anion Gap 18 mmol/L (10-20); BUN (Urea Nitrogen) 8 mg/dL (9.8-20.1); Bilirubin, Total 0.5 mg/dL (0.2-1.2); CKMB 17.4 ng/mL (0-6.6); Calc. Creatinine Clearance 0 mL/min (70-130); Carbon Dioxide 13 mmol/L (22-29); Chloride 89 mmol/L (98-107); Estimated GFR-MDRD 83; Globulin 2.7 g/dL (2.4-3.5); Glucose 196 mg/dL (70-105); Potassium 4.5 mmol/L (3.5-5.1); Protein, Total 5.9 g/dL (6.0-8.3)
[2017-11-26 20:27] LABS: Sodium 115 mmol/L (136-145)
[2017-11-26 20:36] VITALS: BMI 31.4
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
--- NOTE | 2017-11-26 20:42 | CT ---
CT CERVICAL SPINE WITHOUT CONTRAST: 11/26/2017 PROVIDED CLINICAL HISTORY: Fall. COMPARISON: 07/03/2017 FINDINGS: There is no evidence for fracture or traumatic subluxation. Cervical degenerative changes are again seen. No prevertebral soft tissue swelling is evident. Enteric and endotracheal tubes are noted. T he visualized lung apices demonstrate prominence of the pulmonary vasculature and pulmonary interstit ium, as well as ground glass opacities and consolidation involving portions of each upper lobe. IMPRESSION: 1. No evidence for fracture or traumatic subluxation. 2. Pulmonary edema type findings involving the lung apices. POS: [facility]
[2017-11-26 21:07] LABS: Actual Bicarbonate (HCO3a) 19.4 mEq/L (22-26); Base Excess (BEa) 7.9 mEq/L (0 (+/-) 2.5); CO2 Tension 46.2 mmHg (35.0-45.0); Hematocrit-ABG 48.3 % (36.0-47.0); Hemoglobin (Hb) 13.5 g/dL (12.0-16.0); O2 Tension (PaO2) 119.6 mmHg (80.0-100.0); pH, Arterial 7.24 (7.35-7.45)
[2017-11-26 21:08] LABS: Analyzer IN Cardio ER; Calcium, Ionized 1.1 mmol/L (1.12-1.30); Puncture Site RRA
[2017-11-26] MEDS: HumaLOG 300 UNITS/3 ML VIAL SC PRN (21:23)
[2017-11-26] MEDS: Famotidine/PF 20 mg/2ml Vial SLOW IVP SCH (21:26)
[2017-11-26] MEDS ORDERED: Calcium Chloride 1 GM/10 ML Abboject SYRINGE ONE (21:35)
[2017-11-26] MEDS: Norepinephrine 8 MG/0.9% NS 250 ML IVPB SCH (21:36)
--- NOTE | 2017-11-26 22:47 | PDOC.EVN ---
Event Note - Event Note Event Note: RN called for order to continue Hypothermia protocol that was started in the ER. New order added to [facility].
[2017-11-26 23:41] LABS: #Basophils 0.1 thou/uL (0.0-0.2); #Lymphocytes 1.4 thou/uL (1.20-3.40); #Monocytes 1.5 thou/uL (0.11-0.59); #Neutrophils 12.7 thou/uL (1.40-6.50); %Basophils 0.7 % (0.0-1.0); %Eosinophils 0.3 % (0.0-10.0); %Lymphocytes 9.1 % (21.0-51.0); %Monocytes 9.3 % (0.0-10.0); %Neutrophils 80.7 % (42.0-75.0); Mean Corpuscular HGB CONC 32.4 g/dL (32.0-36.0); Mean Corpuscular Hemoglobin 27.3 pg (27.0-31.0); Mean Corpuscular Volume 84.1 fl (81.0-99.0); Platelet Count 364 thou/uL (130-400); RBC Distribution Width 14.3 % (11.5-14.5); Red Blood Cell (RBC) Count 5.13 mill/uL (4.20-5.40); White Blood Cell (WBC) Count 15.8 thou/uL (4.8-10.8)
[2017-11-26] MEDS ORDERED: DO NOT USE PRE-EXISTING LYTE PROTOCOL FS SCH (23:45)
[2017-11-26 23:47] LABS: INR-International Normal Ratio 1.2; Prothrombin Time 14.9 SEC (12.0-14.7)
[2017-11-27] MEDS: Sodium Chloride 0.9% 1,000 ML IV SCH (00:19)
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
[2017-11-27 00:23] LABS: Anion Gap 12 mmol/L (10-20); BUN (Urea Nitrogen) 10 mg/dL (9.8-20.1); Calc. Creatinine Clearance 125 mL/min (70-130); Calcium 7.9 mg/dL (7.8-10.44); Carbon Dioxide 22 mmol/L (22-29); Chloride 98 mmol/L (98-107); Estimated GFR-MDRD Greater than 90; Glucose 155 mg/dL (70-105); Magnesium 1.6 mg/dL (1.6-2.6); Phosphorus 3.7 mg/dL (2.3-4.7); Potassium 4.3 mmol/L (3.5-5.1); Sodium 128 mmol/L (136-145)
[2017-11-27] MEDS: Vecuronium 10 MG VIAL IV PRN ×7 (00:53→20:41)
[2017-11-27] MEDS: Sterile Water 10 ML ONE (00:54)
[2017-11-27] MEDS: fentaNYL Citrate/PF 2,000 MCG in Sodium Chloride 0.9% 60 ML IV SCH ×2 (01:20→19:56)
[2017-11-27] MEDS ORDERED: Sterile Water 10 ML ONE ×3 (04:49→11:05)
[2017-11-27] MEDS: Clindamycin/D5W 900 MG in Premix Bag 1 BAG IVPB SCH ×3 (04:53→21:23)
[2017-11-27 06:21] LABS: #Lymphocytes 0.6 thou/uL (1.20-3.40); #Monocytes 1.2 thou/uL (0.11-0.59); #Neutrophils 8.5 thou/uL (1.40-6.50); %Basophils 0.1 % (0.0-1.0); %Eosinophils 0.4 % (0.0-10.0); %Lymphocytes 5.4 % (21.0-51.0); %Monocytes 11.6 % (0.0-10.0); %Neutrophils 82.6 % (42.0-75.0); Hemoglobin 13.5 g/dL (12.0-16.0); INR-International Normal Ratio 1.2; Mean Corpuscular HGB CONC 32.8 g/dL (32.0-36.0); Mean Corpuscular Hemoglobin 27.3 pg (27.0-31.0); Mean Corpuscular Volume 83.1 fl (81.0-99.0); Mean Platelet Volume 6.9 fL (7.4-10.4); PTT 30.5 SEC (22.9-36.1); Platelet Count 243 thou/uL (130-400); Prothrombin Time 14.8 SEC (12.0-14.7); RBC Distribution Width 14.3 % (11.5-14.5); Red Blood Cell (RBC) Count 4.97 mill/uL (4.20-5.40); White Blood Cell (WBC) Count 10.2 thou/uL (4.8-10.8)
[2017-11-27 06:35] LABS: Hemoglobin A1c 5.5 % (4.0-6.0)
[2017-11-27 06:44] LABS: Troponin I 0.069 ng/mL (< 0.028)
[2017-11-27 06:48] LABS: CKMB 151.2 ng/mL (0-6.6)
[2017-11-27 06:49] LABS: Anion Gap 10 mmol/L (10-20); BUN (Urea Nitrogen) 10 mg/dL (9.8-20.1); Calc. Creatinine Clearance 135 mL/min (70-130); Calcium 7.8 mg/dL (7.8-10.44); Carbon Dioxide 24 mmol/L (22-29); Chloride 101 mmol/L (98-107); Estimated GFR-MDRD Greater than 90; Glucose 117 mg/dL (70-105); Magnesium 1.4 mg/dL (1.6-2.6); Phosphorus 2.8 mg/dL (2.3-4.7); Potassium 3.6 mmol/L (3.5-5.1); Sodium 131 mmol/L (136-145)
[2017-11-27 07:22] LABS: Actual Bicarbonate (HCO3a) 19.6 mEq/L (22-26); Base Excess (BEa) -5.8 mEq/L (0 (+/-) 2.5); CO2 Tension 38.4 mmHg (35.0-45.0); Calcium, Ionized 1.2 mmol/L (1.12-1.30); Hematocrit-ABG 44.6 % (36.0-47.0); Hemoglobin (Hb) 13.6 g/dL (12.0-16.0); O2 Tension (PaO2) 84.2 mmHg (80.0-100.0); pH, Arterial 7.33 (7.35-7.45)
[2017-11-27 07:23] LABS: Puncture Site RR
[2017-11-27] MEDS: levETIRAcetam In NaCl (Iso-Os) 1,000 MG in Premix Bag 1 BAG IVPB SCH ×2 (09:23→21:23)
[2017-11-27] MEDS: Dextrose 5% in Water 1,000 ML IV SCH (09:24)
--- NOTE | 2017-11-27 09:46 | PRG ---
DATE OF SERVICE: 11/27/2017 SUBJECTIVE: Ms. Comer remains on the ventilator, sedated. The family is at the bedside, two sisters. OBJECTIVE: VITAL SIGNS: The patient's blood pressure is 128/70, pulse is 68, it looks like an atrial tachycardi a with controlled ventricular response. LUNGS: Clear. CARDIAC: No new murmur, rub or gallop. ABDOMEN: Soft, nontender. EXTREMITIES: No edema. LABORATORY DATA: The patient's troponin level was only 0.069. Sodium has increased all the way up t o 131. Patient has been receiving normal saline. ASSESSMENT: 1. The family indicates that the patient did have seizure at home. She initially was with her boyfr iend. Her boyfriend went to go get some help and the sisters arrived and they said she was "quite pu rple." 2. Coronary artery disease, does not appear to be the primary source of this event with a troponin l evel being low despite severe metabolic acidosis. 3. I discussed the patient's behavior with the family, they do not think she carries a specific psyc hiatric diagnosis, but they do indicate that occasionally she has thoughts about people being there w ho are actually not there and some type of visual hallucinations in the past, but they do note that r ecently. The patient has been very erratic and taking medicines properly. They says she does drink "quite a lot of water." PLAN: Continue supportive care. Prognosis long term care administrator guarded. Discussed with the sisters who are ve ry nice and supportive of her.
[2017-11-27] MEDS: Lorazepam 2 MG/ML VIAL SLOW IVP PRN ×4 (12:28→20:42)
[2017-11-27 12:54] LABS: #Lymphocytes 0.3 thou/uL (1.20-3.40); #Monocytes 0.7 thou/uL (0.11-0.59); #Neutrophils 6.5 thou/uL (1.40-6.50); %Eosinophils 0.2 % (0.0-10.0); %Lymphocytes 4.4 % (21.0-51.0); %Monocytes 9.6 % (0.0-10.0); %Neutrophils 85.8 % (42.0-75.0); Hemoglobin 13.4 g/dL (12.0-16.0); Mean Corpuscular HGB CONC 33.1 g/dL (32.0-36.0); Mean Corpuscular Hemoglobin 27.7 pg (27.0-31.0); Mean Corpuscular Volume 83.9 fl (81.0-99.0); Mean Platelet Volume 8.1 fL (7.4-10.4); Platelet Count 206 thou/uL (130-400); RBC Distribution Width 14.6 % (11.5-14.5); Red Blood Cell (RBC) Count 4.83 mill/uL (4.20-5.40); White Blood Cell (WBC) Count 7.5 thou/uL (4.8-10.8)
[2017-11-27 13:05] LABS: INR-International Normal Ratio 1.1; PTT 28.1 SEC (22.9-36.1)
[2017-11-27 13:12] LABS: Anion Gap 9 mmol/L (10-20); BUN (Urea Nitrogen) 9 mg/dL (9.8-20.1); Calc. Creatinine Clearance 146 mL/min (70-130); Calcium 7.8 mg/dL (7.8-10.44); Carbon Dioxide 22 mmol/L (22-29); Chloride 102 mmol/L (98-107); Estimated GFR-MDRD Greater than 90; Glucose 138 mg/dL (70-105); Magnesium 1.4 mg/dL (1.6-2.6); Phosphorus 2.6 mg/dL (2.3-4.7); Potassium 3.3 mmol/L (3.5-5.1); Sodium 130 mmol/L (136-145)
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
--- NOTE | 2017-11-27 14:16 | PDOC.PN ---
- Subjective Encounter Start Date: 11/27/17 Encounter Start Time: 08:50 -: non-verbal Pt sedated, paralyzed, orally intubated. sisters at [facility], upadted. No F/c, no acute overnight events. On hypothermic protocol until 4pm, discussed with Dr Espinal. No witnessed seizure activity. Na+ made a large jump overnight. ROS not obtainable - Objective Resuscitation Status: Resuscitation Status FULL:Full Resuscitation MAR Reviewed: Yes Vital Signs & Weight: Vital Signs (12 hours) Temp Pulse Resp BP Pulse Ox 11/27/17 12:20 95 177/73 H 11/27/17 12:00 20 11/27/17 10:00 20 11/27/17 09:31 66 126/76 11/27/17 08:00 91.1 F L 66 20 100 11/27/17 06:26 57 L 143/64 H 11/27/17 06:00 20 11/27/17 04:00 20 Weight Admit Weight 183 lb Weight 183 lb 6.793 oz Most Recent Monitor Data Heart Rate from ECG 97 NIBP 143/67 NIBP BP-Mean 90 Respiration from ECG 17 SpO2 98 I&O: 11/26/17 11/27/17 11/28/17 06:59 06:59 06:59 Intake Total 1841 0 Output Total 0295 1125 Balance -5104 -3393 Result Diagrams: 11/27/17 12:47 11/27/17 12:47 Additional Labs: Accuchecks 11/27/17 11/27/17 11/27/17 12:37 09:33 04:13 POC Glucose 127 H 133 H 137 H 11/27/17 11/26/17 00:25 21:21 POC Glucose 139 H 196 H Radiology Reviewed by me: Yes EKG Reviewed by me: Yes Phys Exam - Physical Examination Constitutional: NAD HEENT: PERRLA, moist MMs, sclera anicteric, oral pharynx no lesions orally intubated, OGT in place Neck: no nodes, no JVD, supple, full ROM Respiratory: no wheezing, no rales, no rhonchi, clear to auscultation bilateral Cardiovascular: RRR, no significant murmur, no rub Gastrointestinal: soft, no distention, positive bowel sounds Musculoskeletal: pulses present, edema present Lymphatic: no nodes Skin: no rash, normal turgor, cap refill <2 seconds Dx/Plan (1) Seizure Code(s): R56.9 - UNSPECIFIED CONVULSIONS Status: Acute Comment: Pt by history may have had a witnessed seizure that began this. brought on by hyponatremia abnd subtherapeutic dilantin. Dr Haddad was the neurologist named by sister, will ask him to see (2) Acute hypoxemic respiratory failure Code(s): J96.01 - ACUTE RESPIRATORY FAILURE WITH HYPOXIA Status: Acute Comment: After hypoT protocol ends at 1600, will wean sedation and wake up (3) Cardiac arrest Code(s): I46.9 - CARDIAC ARREST, CAUSE UNSPECIFIED Status: Acute Comment: OOH, while en route, ROSC prior to arrival. hypothermia protocol started by ER (4) Severe obesity Code(s): E66.01 - MORBID (SEVERE) OBESITY DUE TO EXCESS CALORIES Status: Chronic (5) Paroxysmal A-fib Code(s): I48.0 - PAROXYSMAL ATRIAL FIBRILLATION Status: Chronic (6) Chronic pain disorder Status: Chronic (7) Coronary atherosclerosis of [place] coronary artery Code(s): I25.10 - ATHSCL HEART DISEASE OF THE [place] CORONARY ARTERY W/O ANG PCTRS Status: Chronic Qualifiers: [place] vs. transplanted heart: [place] heart (8) Dyslipidemia Code(s): E78.5 - HYPERLIPIDEMIA, UNSPECIFIED Status: Chronic (9) GERD (gastroesophageal reflux disease) Code(s): K21.9 - GASTRO-ESOPHAGEAL REFLUX DISEASE WITHOUT ESOPHAGITIS Status: Chronic Qualifiers: Esophagitis presence: without esophagitis Qualified Code(s): K21.9 - Gastro -esophageal reflux disease without esophagitis (10) Grand mal seizure disorder Code(s): G40.409 - OTH GENERALIZED EPILEPSY, NOT INTRACTABLE, W/O STAT EPI Status: Chronic Comment: sec to prior brain surgery on her left side, stable (11) Tobacco use disorder Code(s): Z72.0 - TOBACCO USE Status: Chronic - Plan cont current plan of care, plan discussed w/ family, salazar catheter, continue antibiotics, older adult social work specialist, respiratory therapy * .
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
[2017-11-27] MEDS: Famotidine/PF 20 mg/2ml Vial SLOW IVP SCH (17:03)
[2017-11-27 17:23] LABS: #Lymphocytes 0.3 thou/uL (1.20-3.40); #Monocytes 0.6 thou/uL (0.11-0.59); %Basophils 0.8 % (0.0-1.0); %Eosinophils 0.3 % (0.0-10.0); %Lymphocytes 4.7 % (21.0-51.0); %Monocytes 9.6 % (0.0-10.0); %Neutrophils 84.6 % (42.0-75.0); Hemoglobin 12.7 g/dL (12.0-16.0); Mean Corpuscular HGB CONC 32.6 g/dL (32.0-36.0); Mean Corpuscular Hemoglobin 27.4 pg (27.0-31.0); Mean Platelet Volume 7.4 fL (7.4-10.4); Platelet Count 175 thou/uL (130-400); RBC Distribution Width 14.5 % (11.5-14.5); Red Blood Cell (RBC) Count 4.64 mill/uL (4.20-5.40)
[2017-11-27 17:30] LABS: INR-International Normal Ratio 1.1; PTT 27.6 SEC (22.9-36.1); Prothrombin Time 13.9 SEC (12.0-14.7)
[2017-11-27 17:52] LABS: Anion Gap 10 mmol/L (10-20); BUN (Urea Nitrogen) 8 mg/dL (9.8-20.1); Calc. Creatinine Clearance 143 mL/min (70-130); Calcium 7.7 mg/dL (7.8-10.44); Carbon Dioxide 20 mmol/L (22-29); Chloride 102 mmol/L (98-107); Estimated GFR-MDRD Greater than 90; Glucose 124 mg/dL (70-105); Magnesium 1.3 mg/dL (1.6-2.6); Phosphorus 2.7 mg/dL (2.3-4.7); Potassium 3.3 mmol/L (3.5-5.1); Sodium 129 mmol/L (136-145)
--- NOTE | 2017-11-27 20:27 | EKG ---
Test Reason : Blood Pressure : / mmHG Vent. Rate : 063 BPM Atrial Rate : 326 BPM P-R Int : 000 ms QRS Dur : 096 ms QT Int : 474 ms P-R-T Axes : 000 070 051 degrees QTc Int : 485 ms Atrial fibrillation Prolonged QT Abnormal ECG When compared with ECG of 26-NOV-2017 15:47, (Unconfirmed) Atrial fibrillation has replaced Sinus rhythm QRS duration has decreased T wave inversion no longer evident in Anterior leads Confirmed by RAHUL SANTOS, DR. Arnold ([id number]) on 11/27/2017 8:26:35 PM Referred By: ZELALEM Confirmed By:DR. Clayton KAY MD
[2017-11-27 21:14] LABS: Sodium 129 mmol/L (136-145)
[2017-11-27] MEDS ORDERED: Diltiazem HCl 125 MG, Admixture Fee 1 EACH in Sodium Chloride 0.9% 100 ML IVPB SCH (21:15)
[2017-11-27] MEDS: Acetaminophen 1,000 MG in Premix Bag 1 BAG IVPB PRN (21:15)
[2017-11-27] MEDS: Pantoprazole 40 MG VIAL IVP SCH (21:23)
[2017-11-28 01:33] LABS: Sodium 128 mmol/L (136-145)
[2017-11-28] MEDS: Lorazepam 2 MG/ML VIAL SLOW IVP PRN ×4 (02:16→15:51)
[2017-11-28] MEDS: Vecuronium 10 MG VIAL IV PRN ×4 (02:16→15:57)
[2017-11-28] MEDS: Acetaminophen 1,000 MG in Premix Bag 1 BAG IVPB PRN ×3 (02:23→18:42)
[2017-11-28] MEDS: Dextrose 5% in Water 1,000 ML IV SCH ×4 (03:49→20:51)
[2017-11-28 04:42] LABS: #Lymphocytes 0.6 thou/uL (1.20-3.40); #Monocytes 0.7 thou/uL (0.11-0.59); #Neutrophils 6.3 thou/uL (1.40-6.50); %Basophils 0.2 % (0.0-1.0); %Eosinophils 0.3 % (0.0-10.0); %Lymphocytes 7.4 % (21.0-51.0); %Neutrophils 83.1 % (42.0-75.0); Hemoglobin 11.5 g/dL (12.0-16.0); Mean Corpuscular HGB CONC 32.7 g/dL (32.0-36.0); Mean Corpuscular Hemoglobin 27.2 pg (27.0-31.0); Mean Corpuscular Volume 83.3 fl (81.0-99.0); Mean Platelet Volume 7.1 fL (7.4-10.4); Platelet Count 185 thou/uL (130-400); RBC Distribution Width 14.6 % (11.5-14.5); Red Blood Cell (RBC) Count 4.24 mill/uL (4.20-5.40); White Blood Cell (WBC) Count 7.6 thou/uL (4.8-10.8)
[2017-11-28 04:59] LABS: ALT (SGPT) 75 U/L (8-55); AST (SGOT) 135 U/L (5-34); Albumin 2.9 g/dL (3.5-5.0); Alkaline Phosphatase 139 U/L (40-150); Anion Gap 6 mmol/L (10-20); BUN (Urea Nitrogen) 6 mg/dL (9.8-20.1); Bilirubin, Total 0.6 mg/dL (0.2-1.2); Calc. Creatinine Clearance 131 mL/min (70-130); Calcium 7.9 mg/dL (7.8-10.44); Carbon Dioxide 24 mmol/L (22-29); Chloride 100 mmol/L (98-107); Estimated GFR-MDRD Greater than 90; Globulin 2.4 g/dL (2.4-3.5); Glucose 156 mg/dL (70-105); Potassium 3.4 mmol/L (3.5-5.1); Protein, Total 5.3 g/dL (6.0-8.3); Sodium 127 mmol/L (136-145)
[2017-11-28] MEDS: Clindamycin/D5W 900 MG in Premix Bag 1 BAG IVPB SCH ×3 (05:16→20:48)
[2017-11-28 07:25] LABS: Actual Bicarbonate (HCO3a) 22.8 mEq/L (22-26); CO2 Tension 50.2 mmHg (35.0-45.0); O2 Tension (PaO2) 95.4 mmHg (80.0-100.0); pH, Arterial 7.28 (7.35-7.45)
[2017-11-28 07:26] LABS: Base Excess (BEa) -4.2 mEq/L (0 (+/-) 2.5); Calcium, Ionized 1.1 mmol/L (1.12-1.30); Hematocrit-ABG 40.6 % (36.0-47.0); Hemoglobin (Hb) 11.6 g/dL (12.0-16.0); Puncture Site RRA
--- NOTE | 2017-11-28 08:47 | RAD ---
CHEST 1 VIEW: HISTORY: Dyspnea. Followup. COMPARISON: 11/26/17. FINDINGS: Cervical spine is magnified. Pulmonary vasculature is slightly engorged. Upper lobes are more clear than on the prior exam. Mediastinum is midline. Endotracheal catheter remains in place. Nasogastr ic tube overlies midline with proximal port at the T10 level. monitoring specialist leads overlie the ches t. Overlying web artifact obscures detail. monitoring specialist leads overlie the chest. IMPRESSION: 1. Improved aeration of the upper lobes. Persistent pulmonary vascular congestion. 2. Endotracheal catheter should be advanced approximately 10 cm for better positioning. POS: [facility]
--- NOTE | 2017-11-28 08:57 | PRG ---
DATE OF SERVICE: 11/28/2017 Ms. Comer remains on the ventilator. There appears to be some myoclonic jerking. PHYSICAL EXAMINATION: VITAL SIGNS: Blood pressure 102/66, pulse 94 regular. LUNGS: Clear. CARDIAC: Normal S1 and S2. ABDOMEN: Soft, nontender. ASSESSMENT: 1. Status post cardiopulmonary arrest. 2. Coronary artery disease. 3. Paroxysmal atrial fibrillation. 4. Nonsustained V-tach yesterday. PLAN: Dr. Bergeron had a discussion with the family about code status due to her poor prognosis. At th is time the decision has been made to change code status to do not resuscitate. Replete potassium and magnesium. A very poor prognosis.
[2017-11-28] MEDS: levETIRAcetam In NaCl (Iso-Os) 1,000 MG in Premix Bag 1 BAG IVPB SCH ×2 (08:59→20:49)
[2017-11-28] MEDS ORDERED: Magnesium Sulfate 3 GM in Sodium Chloride 0.9% 100 ML IVPB SCH (09:00)
[2017-11-28] MEDS ORDERED: Potassium Chloride 40 MEQ in Sodium Chloride 0.9% 250 ML 250 ML IVPB SCH (09:00)
[2017-11-28] MEDS: HumaLOG 300 UNITS/3 ML VIAL SC PRN (09:23)
[2017-11-28 09:44] LABS: Sodium 128 mmol/L (136-145)
[2017-11-28] MEDS ORDERED: Sterile Water 10 ML ONE ×2 (10:22→15:55)
--- NOTE | 2017-11-28 13:46 | PDOC.PN ---
- Subjective Encounter Start Date: 11/28/17 Encounter Start Time: 11:50 -: non-verbal Pt still intubated, sedated, and paralyzed. has jerking when paralytics are off. Neuro consulted, EEG ordered, will see in AM. On Keppra, Fentayl, levophed, bryce prn NO f/c, no Acute overnight events. Pt has no diarrhea ROS not obtainable - Objective Resuscitation Status: Resuscitation Status DNR:Do Not Resuscitate MAR Reviewed: Yes Vital Signs & Weight: Vital Signs (12 hours) Pulse Resp BP 11/28/17 11:04 102 H 136/54 L 11/28/17 07:13 109 H 123/47 L 11/28/17 05:27 20 11/28/17 04:00 20 11/28/17 02:09 99/60 11/28/17 02:00 20 Weight Admit Weight 183 lb Weight 183 lb 6.793 oz Most Recent Monitor Data Heart Rate from ECG 77 NIBP 112/72 NIBP BP-Mean 91 Respiration from ECG 21 SpO2 100 I&O: 11/27/17 11/28/17 11/29/17 06:59 06:59 06:59 Intake Total 1841 2173.2 Output Total 3585 2775 Balance -1744 -601.8 Result Diagrams: 11/28/17 04:19 11/28/17 09:00 Additional Labs: Accuchecks 11/28/17 11/28/17 11/28/17 08:55 04:44 01:25 POC Glucose 171 H 145 H 132 H 11/27/17 11/27/17 20:55 17:16 POC Glucose 121 H 120 H EKG Reviewed by me: Yes Phys Exam - Physical Examination sedated, paralyzed, intubated. HEENT: moist MMs, sclera anicteric, oral pharynx no lesions Neck: no nodes, no JVD, supple, full ROM Respiratory: no wheezing, no rales, no rhonchi, clear to auscultation bilateral Cardiovascular: RRR, no significant murmur, no rub Gastrointestinal: soft, non-tender, no distention, positive bowel sounds Musculoskeletal: edema present Lymphatic: no nodes Skin: no rash, normal turgor, cap refill <2 seconds Dx/Plan (1) Seizure Code(s): R56.9 - UNSPECIFIED CONVULSIONS Status: Acute Comment: Pt by history may have had a witnessed seizure that began this. brought on by hyponatremia abnd subtherapeutic dilantin. Dr Haddad was the neurologist named by sister, will ask him to see. EEG today, will see in am 11/29, continue Pauline (2) Acute hypoxemic respiratory failure Code(s): J96.01 - ACUTE RESPIRATORY FAILURE WITH HYPOXIA Status: Acute Comment: Pt nonresponsive, but did have myoclonic activity. paralyzed until neuro sees (3) Cardiac arrest Code(s): I46.9 - CARDIAC ARREST, CAUSE UNSPECIFIED Status: Acute Comment: OOH, while en route, ROSC prior to arrival. hypothermia protocol started by ER (4) Severe obesity Code(s): E66.01 - MORBID (SEVERE) OBESITY DUE TO EXCESS CALORIES Status: Chronic (5) Paroxysmal A-fib Code(s): I48.0 - PAROXYSMAL ATRIAL FIBRILLATION Status: Chronic (6) Chronic pain disorder Status: Chronic (7) Coronary atherosclerosis of [place] coronary artery Code(s): I25.10 - ATHSCL HEART DISEASE OF [place] CORONARY ARTERY W/O ANG PCTRS Status: Chronic Qualifiers: [place] vs. transplanted heart: [place] heart (8) Dyslipidemia Code(s): E78.5 - HYPERLIPIDEMIA, UNSPECIFIED Status: Chronic (9) GERD (gastroesophageal reflux disease) Code(s): K21.9 - GASTRO-ESOPHAGEAL REFLUX DISEASE WITHOUT ESOPHAGITIS Status: Chronic Qualifiers: Esophagitis presence: without esophagitis Qualified Code(s): K21.9 - Gastro -esophageal reflux disease without esophagitis (10) Grand mal seizure disorder Code(s): G40.409 - OTH GENERALIZED EPILEPSY, NOT INTRACTABLE, W/O STAT EPI Status: Chronic Comment: sec to prior brain surgery on her left side, stable (11) Tobacco use disorder Code(s): Z72.0 - TOBACCO USE Status: Chronic - Plan * .
--- NOTE | 2017-11-28 14:56 | PRG ---
DATE OF SERVICE: 11/28/2017 SUBJECTIVE: Ms. Comer appears to be having not myoclonic jerking. She does not respond to a sternal rub. OBJECTIVE: HEENT: Her pupils are equal, but sluggish. She does not have a corneal reflex. LUNGS: Clear anteriorly. HEART: Regular rhythm. ABDOMEN: Soft. EXTREMITIES: Without asymmetry. LABORATORY DATA: White count 7.6, hemoglobin 11.5, and platelets 185. Sodium 127, potassium 3.4, chloride 100, bicarbonate 24, BUN 6, and creatinine 0.6. IMPRESSION: Status post out of hospital arrest with severe anoxic/hypoperfusion injury. We will order an EEG. We will continue to support him with sister and brother. Neither of them want her resuscitated should she have another cardiac arrest. Chest radiograph does not show any evidence of pulmonary edema at this point, the quality of the film s affected by x-ray was taken this morning. Her pH today 7.28, CO2 of 50, pO2 of 95. I do not expect her to recover, but we will give her through the weekend before we start talking abou t withdrawing support. Critical care time was 30 minutes.
[2017-11-28] MEDS: Sterile Water 10 ML ONE (15:56)
[2017-11-28] MEDS: fentaNYL Citrate/PF 2,000 MCG in Sodium Chloride 0.9% 60 ML IV SCH (18:08)
[2017-11-28] MEDS: Pantoprazole 40 MG VIAL IVP SCH (20:49)
[2017-11-28] MEDS: Norepinephrine 8 MG/0.9% NS 250 ML IVPB SCH (22:02)
--- NOTE | 2017-11-28 22:14 | EKG ---
Test Reason : Blood Pressure : / mmHG Vent. Rate : 125 BPM Atrial Rate : 120 BPM P-R Int : 000 ms QRS Dur : 088 ms QT Int : 300 ms P-R-T Axes : 000 069 -47 degrees QTc Int : 433 ms Atrial fibrillation with rapid ventricular response Nonspecific ST and T wave abnormality Abnormal ECG When compared with ECG of 27-NOV-2017 06:55, Vent. rate has increased BY 62 BPM Non-specific change in ST segment in Inferior leads Nonspecific T wave abnormality now evident in Inferior leads Nonspecific T wave abnormality now evident in Lateral leads Confirmed by RAHUL SANTOS, DR. Arnold ([id number]) on 11/28/2017 10:14:32 PM Referred By: LINDA Confirmed By:DR. Clayton KAY MD
[2017-11-29] MEDS: Acetaminophen 1,000 MG in Premix Bag 1 BAG IVPB PRN ×2 (03:03→20:11)
[2017-11-29] MEDS: Clindamycin/D5W 900 MG in Premix Bag 1 BAG IVPB SCH ×3 (04:26→20:26)
[2017-11-29 04:43] LABS: #Lymphocytes 0.5 thou/uL (1.20-3.40); #Monocytes 0.6 thou/uL (0.11-0.59); #Neutrophils 2.8 thou/uL (1.40-6.50); %Eosinophils 0.8 % (0.0-10.0); %Lymphocytes 12.5 % (21.0-51.0); %Monocytes 14.5 % (0.0-10.0); %Neutrophils 72.2 % (42.0-75.0); Hemoglobin 9.4 g/dL (12.0-16.0); Mean Corpuscular HGB CONC 33.4 g/dL (32.0-36.0); Mean Corpuscular Hemoglobin 27.7 pg (27.0-31.0); Mean Corpuscular Volume 82.9 fl (81.0-99.0); Mean Platelet Volume 7.6 fL (7.4-10.4); Platelet Count 127 thou/uL (130-400); RBC Distribution Width 14.5 % (11.5-14.5); White Blood Cell (WBC) Count 3.9 thou/uL (4.8-10.8)
[2017-11-29 05:05] LABS: ALT (SGPT) 48 U/L (8-55); AST (SGOT) 83 U/L (5-34); Albumin 2.8 g/dL (3.5-5.0); Alkaline Phosphatase 110 U/L (40-150); Anion Gap 5 mmol/L (10-20); BUN (Urea Nitrogen) 4 mg/dL (9.8-20.1); Bilirubin, Total 0.6 mg/dL (0.2-1.2); Calc. Creatinine Clearance 148 mL/min (70-130); Calcium 8.1 mg/dL (7.8-10.44); Carbon Dioxide 26 mmol/L (22-29); Chloride 99 mmol/L (98-107); Estimated GFR-MDRD Greater than 90; Globulin 2.2 g/dL (2.4-3.5); Glucose 131 mg/dL (70-105); Magnesium 1.4 mg/dL (1.6-2.6); Potassium 3.3 mmol/L (3.5-5.1); Sodium 127 mmol/L (136-145)
[2017-11-29 06:36] LABS: Actual Bicarbonate (HCO3a) 22.5 mEq/L (22-26); Base Excess (BEa) -1.1 mEq/L (0 (+/-) 2.5); CO2 Tension 33.4 mmHg (35.0-45.0); Calcium, Ionized 1.1 mmol/L (1.12-1.30); Hematocrit-ABG 33.4 % (36.0-47.0); Hemoglobin (Hb) 9.3 g/dL (12.0-16.0); Puncture Site RR; pH, Arterial 7.45 (7.35-7.45)
[2017-11-29] MEDS ORDERED: Potassium Chloride 20 MEQ TAB PO PRN (08:00)
[2017-11-29] MEDS ORDERED: Potassium Phosphate 9 MMOL in Sodium Chloride 0.9% 100 ML IVPB PRN (08:00)
[2017-11-29] MEDS ORDERED: Potassium Chloride 40 MEQ in Premix Bag 1 BAG IVPB PRN (08:00)
[2017-11-29] MEDS ORDERED: Magnesium 2 GM/NS 0.9% 100 ML 2 GM in Premix Bag 1 BAG IVPB PRN (08:00)
[2017-11-29] MEDS ORDERED: Potassium Chloride 40 MEQ in Sodium Chloride 0.9% 250 ML 250 ML IVPB PRN (08:00)
[2017-11-29] MEDS ORDERED: Potassium Phosphate 12 MMOL in Sodium Chloride 0.9% 250 ML 250 ML IV PRN (08:00)
[2017-11-29] MEDS ORDERED: Magnesium Oxide 400 MG TAB PO PRN ×2 (08:00)
[2017-11-29] MEDS ORDERED: CCU Electrolyte Replacement 1 EACH FS SCH (08:00)
[2017-11-29] MEDS ORDERED: Potassium Phosphate 15 MMOL in Sodium Chloride 0.9% 250 ML 250 ML IV PRN (08:00)
[2017-11-29] MEDS ORDERED: CCU ELECTROLYTE REPLACEMENT PROTOCOL FS PRN (08:00)
[2017-11-29] MEDS: levETIRAcetam In NaCl (Iso-Os) 1,000 MG in Premix Bag 1 BAG IVPB SCH ×2 (09:04→20:55)
--- NOTE | 2017-11-29 10:26 | RAD ---
PORTABLE SEMIUPRIGHT FRONTAL CHEST RADIOGRAPH: DATE: 11/29/17. COMPARISON: 11/28/17. History Ventilated patient. FINDINGS: Endotracheal tube and nasogastric tube in stable position. Heart and mediastinal contours are unchan ged. There are cystic/emphysematous changes noted in the lung apex on the right, stable. There is nonspecific linear interstitial density in the right perihilar region/right upper lobe, with increased linear densities along the course of the minor fissure, new. No lobar consolidation or al veolar edema. IMPRESSION: New interstitial prominence in the right perihilar region/right upper lobe. Findings may be on the b asis of volume loss, asymmetric edema, or inflammatory process. Followup to resolution advised. POS: ELIZA
[2017-11-29] MEDS ORDERED: Sodium Chloride 0.9% 15 ML NEB ONE (10:34)
[2017-11-29] MEDS: Lorazepam 2 MG/ML VIAL SLOW IVP PRN (10:37)
[2017-11-29] MEDS ORDERED: Magnesium Sulfate 4 GM in Sodium Chloride 0.9% 250 ML 250 ML IVPB SCH (11:45)
--- NOTE | 2017-11-29 11:57 | PRG ---
DATE OF SERVICE: 11/29/2017 SERVICE: Pulmonary Medicine. INTERVAL HISTORY: Patient is doing poorly from a neurologic standpoint. There is no interval progre ssion/improvement in her underlying process. That being said, she had no respiratory or cardiovascul ar events overnight. PHYSICAL EXAMINATION: VITAL SIGNS: Afebrile, pulse 105, blood pressure 134/50, respirations 17, saturation 99% on 37% FiO2 and a PEEP of 5. GENERAL: The patient is intubated. She is under no sedation, but remains comatose. HEENT: Normocephalic, atraumatic. Sclerae are white, conjunctivae pink. Oral mucosa is moist witho ut lesions. HEART: Normal rate, regular. ABDOMEN: Soft, nontender, nondistended. Bowel sounds are positive. LUNGS: Decent air entry. There is a prolonged expiratory phase with a little bit of wheezing and rh onchi present. No crackles are appreciated. HEART: Normal rate and regular. ABDOMEN: Soft, nontender, and nondistended. Bowel sounds are positive. MUSCULOSKELETAL: No cyanosis or clubbing. There is trace pitting in the bilateral lower extremities . NEUROLOGIC: She has an upward gaze preference. Her pupils are equal, round, and reactive to light. She is overbreathing the ventilator comfortably. She does not withdraw from noxious stimuli in the lower extremities. Right and left upper extremity postures with noxious stimuli. She has a cross ex tensor reflex in the bilateral lower extremities. She is certainly not doing anything that is purpos eful at this time. LABORATORY DATA: WBC 3.9, hemoglobin 9.4, platelets 127,000 and down trending. INR 1.1. PH 7.45, p CO2 33, pO2 113 on 50% FiO2 at that time. Creatinine 0.53. Potassium 3.3, sodium 127 and gently brianna nding upward. Magnesium 1.4. Liver function studies are otherwise unremarkable with down trending A ST. Urinalysis is unremarkable. IMAGING DATA: Chest x-ray demonstrates interstitial prominence in the right perihilar region. There is fluid in the fissure and maybe some plate of atelectasis in the right mid lung zone. Endotrachea l tube is in good position, roughly 5 cm above the jeanne. Enteric catheter coursing below the level of the diaphragm. ASSESSMENT: 1. Acute hypoxic respiratory failure. 2. Anoxic brain injury. 3. Seizure disorder. 4. Out of hospital, PEA arrest. PLAN: We will continue supportive care through the weekend. Magnesium and potassium will be replace d today. I have made multiple adjustments to the ventilator in order to provide comfort. Dyssynchro ny seem to be minimized with pressure control ventilation which I think is reasonable to use given th at she is not on any sedating medication or paralytic at this time. Nebulized medications will be in itiated for her prolonged expiratory time. Pulmonary or Critical Care will continue to follow along and she will remain in this location. CRITICAL CARE TIME: 30 minutes.
[2017-11-29] MEDS: Sodium Chloride 0.9% 1,000 ML IV SCH (12:45)
--- NOTE | 2017-11-29 13:20 | PDOC.PN ---
- Subjective Encounter Start Date: 11/29/17 Encounter Start Time: 11:20 -: non-verbal Pt off sedation except fentanyl, off paralytics, no tonic-clonic activity. Seen by Dr Haddad earlier, EEg done yesterday apparently showed darren suppression, official report pending. No F/c,no N/v/d/C. Pt not responding off of sedation. No acute events overnight, off of levophed ROs not obtainable, sister at BS and updated - Objective Resuscitation Status: Resuscitation Status DNR:Do Not Resuscitate KOLE Reviewed: Yes Vital Signs & Weight: Vital Signs (12 hours) Pulse Resp BP 11/29/17 12:17 93 116/49 L 11/29/17 10:17 106 H 167/76 H 11/29/17 06:56 74 95/45 L 11/29/17 06:00 20 11/29/17 04:00 20 11/29/17 03:35 83 11/29/17 02:00 20 Weight Admit Weight 183 lb Weight 183 lb 6.793 oz Most Recent Monitor Data Heart Rate from ECG 105 NIBP 134/50 NIBP BP-Mean 65 Respiration from ECG 17 SpO2 99 I&O: 11/28/17 11/29/17 11/30/17 06:59 06:59 06:59 Intake Total 2173.2 2775.6 Output Total 2775 1985 Balance -601.8 790.6 Result Diagrams: 11/29/17 04:00 11/29/17 04:00 Additional Labs: Accuchecks 11/29/17 11/29/17 11/29/17 10:44 04:06 00:26 POC Glucose 138 H 133 H 115 H 11/28/17 11/28/17 21:39 14:38 POC Glucose 141 H 107 Radiology Reviewed by me: Yes EKG Reviewed by me: Yes Phys Exam - Physical Examination Constitutional: NAD HEENT: moist MMs, sclera anicteric, oral pharynx no lesions Neck: no nodes, no JVD, supple, full ROM Respiratory: no wheezing, no rales, no rhonchi, clear to auscultation bilateral Cardiovascular: RRR, no rub Gastrointestinal: soft, non-tender, no distention, positive bowel sounds Musculoskeletal: pulses present, edema present off sedation and paralytics did have some posturing previosuly. dont see Lymphatic: no nodes Skin: no rash, normal turgor, cap refill <2 seconds Dx/Plan (1) Seizure Code(s): R56.9 - UNSPECIFIED CONVULSIONS Status: Acute Comment: Pt by history may have had a witnessed seizure that began this. brought on by hyponatremia abnd subtherapeutic dilantin. Dr Haddad was the neurologist named by sister,has seen, note pending. EEG with 'flatline' and occasional busts. discussed with Horacio (2) Acute hypoxemic respiratory failure Code(s): J96.01 - ACUTE RESPIRATORY FAILURE WITH HYPOXIA Status: Acute Comment: Pt nonresponsive, but did have myoclonic activity. paralyzed until neuro saw, now off (3) Cardiac arrest Code(s): I46.9 - CARDIAC ARREST, CAUSE UNSPECIFIED Status: Acute Comment: OOH, while en route, ROSC prior to arrival. hypothermia protocol started by ER adn completed. normothermic (4) Severe obesity Code(s): E66.01 - MORBID (SEVERE) OBESITY DUE TO EXCESS CALORIES Status: Chronic (5) Paroxysmal A-fib Code(s): I48.0 - PAROXYSMAL ATRIAL FIBRILLATION Status: Chronic (6) Chronic pain disorder Status: Chronic (7) Coronary atherosclerosis of [place] coronary artery Code(s): I25.10 - ATHSCL HEART DISEASE OF [place] CORONARY ARTERY W/O ANG PCTRS Status: Chronic Qualifiers: [place] vs. transplanted heart: [place] heart (8) Dyslipidemia Code(s): E78.5 - HYPERLIPIDEMIA, UNSPECIFIED Status: Chronic (9) GERD (gastroesophageal reflux disease) Code(s): K21.9 - GASTRO-ESOPHAGEAL REFLUX DISEASE WITHOUT ESOPHAGITIS Status: Chronic Qualifiers: Esophagitis presence: without esophagitis Qualified Code(s): K21.9 - Gastro -esophageal reflux disease without esophagitis (10) Grand mal seizure disorder Code(s): G40.409 - OTH GENERALIZED EPILEPSY, NOT INTRACTABLE, W/O STAT EPI Status: Chronic Comment: sec to prior brain surgery on her left side, stable (11) Tobacco use disorder Code(s): Z72.0 - TOBACCO USE Status: Chronic - Plan * .
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
[2017-11-29] MEDS: fentaNYL Citrate/PF 2,000 MCG in Sodium Chloride 0.9% 60 ML IV SCH (16:52)
[2017-11-29] MEDS: Pantoprazole 40 MG VIAL IVP SCH (20:30)
[2017-11-30] MEDS: Acetaminophen 1,000 MG in Premix Bag 1 BAG IVPB PRN ×2 (04:53→14:20)
[2017-11-30] MEDS: Clindamycin/D5W 900 MG in Premix Bag 1 BAG IVPB SCH ×3 (04:54→20:55)
[2017-11-30 05:45] LABS: Anion Gap 11 mmol/L (10-20); BUN (Urea Nitrogen) 5 mg/dL (9.8-20.1); Calc. Creatinine Clearance 154 mL/min (70-130); Calcium 8.2 mg/dL (7.8-10.44); Carbon Dioxide 24 mmol/L (22-29); Chloride 102 mmol/L (98-107); Estimated GFR-MDRD Greater than 90; Glucose 120 mg/dL (70-105); Magnesium 1.6 mg/dL (1.6-2.6); Phosphorus 2.6 mg/dL (2.3-4.7); Potassium 3.8 mmol/L (3.5-5.1); Sodium 133 mmol/L (136-145)
[2017-11-30 06:55] LABS: Band 5 % (5-11); Eosinophils 1 % (0-10); Hemoglobin 10.5 g/dL (12.0-16.0); Lymphocytes 18 % (21-51); MDiff Complete? YES; Mean Corpuscular HGB CONC 33.4 g/dL (32.0-36.0); Mean Corpuscular Hemoglobin 27.8 pg (27.0-31.0); Mean Corpuscular Volume 83.3 fl (81.0-99.0); Mean Platelet Volume 7.4 fL (7.4-10.4); Monocytes 7 % (0-10); Neutrophil 69 % (42-75); Platelet Count 126 thou/uL (130-400); RBC Distribution Width 15.1 % (11.5-14.5); Red Blood Cell (RBC) Count 3.77 mill/uL (4.20-5.40); White Blood Cell (WBC) Count 4.6 thou/uL (4.8-10.8)
--- NOTE | 2017-11-30 09:20 | PRG ---
DATE OF SERVICE: 11/30/2017 SERVICE: Pulmonary Medicine. INTERVAL HISTORY: The patient is doing fine from a respiratory standpoint. She is breathing comfort ably over the ventilator. She has had no improvement in her neurologic symptoms. There were no repor eugene events overnight. She frequently will bite the tube and has coughing fits. As such, a little bi t of fentanyl was reintroduced. The patient is not doing anything purposeful to date. PHYSICAL EXAMINATION: VITAL SIGNS: Afebrile currently with a T-max overnight of 100.4, pulse 92, blood pressure 96/32, res pirations 13, saturation 96% on 21% FiO2 and a PEEP of 5. HEENT: Normocephalic, atraumatic. Sclerae are white, conjunctivae pink. Oral mucosa is moist witho ut lesions. LUNGS: Decent air entry without prolonged expiratory phase. No wheezing, rhonchi, or crackles. HEART: Normal rate and regular. ABDOMEN: Soft, nontender, nondistended. Bowel sounds are positive. MUSCULOSKELETAL: No cyanosis or clubbing. There is no pitting in the bilateral lower extremities. NEUROLOGIC: She demonstrates cross extensor reflex in the bilateral lower extremities. With noxious stimuli to the upper extremities and deep suctioning, she postures in the upper extremities. She chapman s an upward gaze preference and does not attend. Her pupils are equal, round, and reactive and Doll' s eye maneuver is normal. ASSESSMENT: 1. Acute hypoxic respiratory failure. 2. Anoxic brain injury. 3. Seizure disorder. 4. Out of hospital PEA arrest, DISCUSSION AND PLAN: I will initiate tube feeds today. We are going to continue our supportive care . In 24-48 hours, if the patient fails to make any neurologic headway, it would be unlikely that she is able to have a meaningful neurologic recovery. We will wean the sedation away as tolerated. Pul monary or Critical Care will continue to follow along. CRITICAL CARE TIME: 30 minutes.
[2017-11-30] MEDS ORDERED: Magnesium 2 GM/NS 0.9% 100 ML 2 GM in Premix Bag 1 BAG IVPB SCH (09:30)
[2017-11-30] MEDS ORDERED: Potassium Phosphate 15 MMOL in Sodium Chloride 0.9% 250 ML 250 ML IVPB SCH (09:45)
[2017-11-30] MEDS: Sodium Chloride 0.9% 1,000 ML IV SCH ×2 (10:02→13:20)
[2017-11-30] MEDS: levETIRAcetam In NaCl (Iso-Os) 1,000 MG in Premix Bag 1 BAG IVPB SCH ×2 (10:03→20:55)
--- NOTE | 2017-11-30 13:53 | PDOC.PN ---
- Subjective Encounter Start Date: 11/30/17 Encounter Start Time: 11:50 -: non-verbal Pt on fentanyl, off earlier, eyes deviated upward, decorticate posturing, no tonic/clinic activity. Neuro note reviewed - + anoxic brain injury, but not brain . Pt will have a persistent vegetative state. Tmax 100.4, given Ofirmev. No other acute events, no D/C Pt on vent, intubated. not overbreathing/ ROs not obtainable, Sig Other at BS - updated to condition. He was asking if we are withdrawing care tomorrow - Objective Resuscitation Status: Resuscitation Status DNR:Do Not Resuscitate MAR Reviewed: Yes Vital Signs & Weight: Vital Signs (12 hours) Temp Pulse Resp BP Pulse Ox 11/30/17 13:00 100.1 F H 11/30/17 12:20 104 H 134/60 11/30/17 10:11 104 H 136/50 L 11/30/17 08:00 14 11/30/17 07:56 99.7 F H 96 13 96 11/30/17 06:40 96 151/64 H 11/30/17 04:52 108 H 11/30/17 04:00 100.0 F H Weight Admit Weight 183 lb Weight 171 lb 4.787 oz Most Recent Monitor Data Heart Rate from ECG 120 NIBP 136/47 NIBP BP-Mean 68 Respiration from ECG 23 SpO2 94 I&O: 11/29/17 11/30/17 12/01/17 06:59 06:59 06:59 Intake Total 2775.6 1943 Output Total 1985 4370 110 Balance 790.6 -967 -110 Result Diagrams: 11/30/17 04:58 11/30/17 04:58 Additional Labs: Accuchecks 11/30/17 11/30/17 11/29/17 13:17 05:05 23:34 POC Glucose 114 H 110 116 H 11/29/17 16:48 POC Glucose 114 H Radiology Reviewed by me: Yes EKG Reviewed by me: Yes Phys Exam - Physical Examination Constitutional: NAD HEENT: PERRLA, moist MMs, sclera anicteric, oral pharynx no lesions Neck: no nodes, no JVD, supple, full ROM Respiratory: no wheezing, no rales, no rhonchi, clear to auscultation bilateral Cardiovascular: RRR, no significant murmur, no rub Review of tele with tachycardia and 1st degree AVB internittently Gastrointestinal: soft, no distention, positive bowel sounds Musculoskeletal: edema present Lymphatic: no nodes Skin: no rash, normal turgor, cap refill <2 seconds Dx/Plan (1) Seizure Code(s): R56.9 - UNSPECIFIED CONVULSIONS Status: Acute Comment: Pt by history may have had a witnessed seizure that began this. brought on by hyponatremia abnd subtherapeutic dilantin. Has been sen by Dr Haddad - confirmed anoxic brain injury, stated pt is in a persisent vegetative state (2) Acute hypoxemic respiratory failure Code(s): J96.01 - ACUTE RESPIRATORY FAILURE WITH HYPOXIA Status: Acute Comment: Pt nonresponsive, but did have myoclonic activity. paralyzed until neuro saw, now off. Just on Fentayl, and when turned off, decorticate posturing seen (3) Cardiac arrest Code(s): I46.9 - CARDIAC ARREST, CAUSE UNSPECIFIED Status: Resolved Comment : OOH, while en route, ROSC prior to arrival. hypothermia protocol started by ER adn completed. normothermic (4) Severe obesity Code(s): E66.01 - MORBID (SEVERE) OBESITY DUE TO EXCESS CALORIES Status: Chronic (5) Paroxysmal A-fib Code(s): I48.0 - PAROXYSMAL ATRIAL FIBRILLATION Status: Chronic (6) Chronic pain disorder Status: Chronic (7) Coronary atherosclerosis of [place] coronary artery Code(s): I25.10 - ATHSCL HEART DISEASE OF [place] CORONARY ARTERY W/O ANG PCTRS Status: Chronic Qualifiers: [place] vs. transplanted heart: [place] heart (8) Dyslipidemia Code(s): E78.5 - HYPERLIPIDEMIA, UNSPECIFIED Status: Chronic (9) GERD (gastroesophageal reflux disease) Code(s): K21.9 - GASTRO-ESOPHAGEAL REFLUX DISEASE WITHOUT ESOPHAGITIS Status: Chronic Qualifiers: Esophagitis presence: without esophagitis Qualified Code(s): K21.9 - Gastro -esophageal reflux disease without esophagitis (10) Grand mal seizure disorder Code(s): G40.409 - OTH GENERALIZED EPILEPSY, NOT INTRACTABLE, W/O STAT EPI Status: Chronic Comment: sec to prior brain surgery on her left side, stable (11) Tobacco use disorder Code(s): Z72.0 - TOBACCO USE Status: Chronic - Plan cont current plan of care, plan discussed w/ family, sr. social media & mobile manager, respiratory therapy * . Will discuss with pulm. Family confimred pt did not want to be kept aliv damion machines.
[2017-11-30] MEDS: fentaNYL Citrate/PF 2,000 MCG in Sodium Chloride 0.9% 60 ML IV SCH (14:10)
[2017-11-30] MEDS: Pantoprazole 40 MG VIAL IVP SCH (20:55)
[2017-12-01] MEDS: Clindamycin/D5W 900 MG in Premix Bag 1 BAG IVPB SCH (05:25)
[2017-12-01] MEDS: Acetaminophen 1,000 MG in Premix Bag 1 BAG IVPB PRN (09:08)
[2017-12-01] MEDS: Morphine 4 MG/ML VIAL SLOW IVP PRN ×6 (09:09→22:44)
[2017-12-01] MEDS: fentaNYL Citrate/PF 2,000 MCG in Sodium Chloride 0.9% 60 ML IV SCH (09:12)
[2017-12-01] MEDS: levETIRAcetam In NaCl (Iso-Os) 1,000 MG in Premix Bag 1 BAG IVPB SCH (09:35)
--- NOTE | 2017-12-01 10:20 | PRG ---
DATE OF SERVICE: 12/01/2017 She still only has some myoclonic jerking, but it is mainly with her eyes. She has made absolutely no neurological improvement over the weekend. PHYSICAL EXAMINATION: VITAL SIGNS: Heart rate 112, respiratory rate 18, oximetry is 97, blood pressure 147/64. LUNGS: Clear. HEART: Regular rhythm. ABDOMEN: Soft. EXTREMITIES: Without asymmetry. LABORATORY DATA: White count 4.6, hemoglobin 10.5, platelets 128. No electrolytes today. IMPRESSION: Severe anoxic brain injury with burst suppression on EEG. Status post arrest. The harley garza wants to withdraw care today. I have answered all their questions. She will be extubated and the family will be allowed to stay at the bedside.
--- NOTE | 2017-12-01 11:15 | PRG ---
DATE OF SERVICE: 12/01/2017 SUBJECTIVE: Ms. Comer remains on the ventilator, unresponsive. He has some myoclonic jerking. OBJECTIVE: VITAL SIGNS: Blood pressure 127/58, pulse is 100-130. It is variable. LUNGS: Clear. CARDIAC: Irregular at times, otherwise is in sinus rhythm. ASSESSMENT AND PLAN: Anoxic brain injury, status post arrest. Family plans to withdraw care. No ot her recommendations at this time. The patient is to be taken off the ventilator today.
--- NOTE | 2017-12-01 13:23 | PDOC.PN ---
- Subjective Encounter Start Date: 12/01/17 Encounter Start Time: 13:30 -: non-verbal Subjective: Patient seen in the ICU as being transfered to the floor. Extubated a coupl -: hours ago. Very obstructed, congested breathing with some increased WOB. - Objective Resuscitation Status: Resuscitation Status DNR:Do Not Resuscitate MAR Reviewed: Yes Vital Signs & Weight: Vital Signs (12 hours) Temp Pulse Resp BP Pulse Ox 12/01/17 10:00 18 12/01/17 07:05 117 H 139/57 L 12/01/17 07:03 112 H 18 97 12/01/17 07:00 99.4 F 12/01/17 06:00 18 12/01/17 05:02 106 H 12/01/17 04:00 99.3 F 18 12/01/17 02:00 22 H 12/01/17 01:22 100 150/60 H 95 Weight Admit Weight 183 lb Weight 171 lb 4.787 oz Most Recent Monitor Data Heart Rate from ECG 178 NIBP 126/52 NIBP BP-Mean 69 Respiration from ECG 31 SpO2 95 I&O: 11/30/17 12/01/17 12/02/17 06:59 06:59 06:59 Intake Total 1943 2230 659.7 Output Total 2910 1990 400 Balance -967 240 259.7 Result Diagrams: 11/30/17 04:58 11/30/17 04:58 Additional Labs: Accuchecks 11/30/17 13:17 POC Glucose 114 H Phys Exam - Physical Examination acute respiratory distress, moderate HEENT: moist MMs upper airway obstructed noises, no focal findings Cardiovascular: RRR Gastrointestinal: soft, positive bowel sounds not moving extremities Deviation from normal: unresponsive Dx/Plan (1) Seizure Code(s): R56.9 - UNSPECIFIED CONVULSIONS Status: Acute Comment: Pt by history may have had a witnessed seizure that began this. brought on by hyponatremia abnd subtherapeutic dilantin. Has been sen by Dr Haddad - confirmed anoxic brain injury, stated pt is in a persisent vegetative state (2) Acute hypoxemic respiratory failure Code(s): J96.01 - ACUTE RESPIRATORY FAILURE WITH HYPOXIA Status: Acute Comment: Pt nonresponsive, but did have myoclonic activity. paralyzed until neuro saw, now off. Patient did not want to be kept alive on machines, family has discussed with palliative care and pulmonology. Extubated. Morphine prn. If stabilizes off vent may go to floor, hospice. (3) Cardiac arrest Code(s): I46.9 - CARDIAC ARREST, CAUSE UNSPECIFIED Status: Resolved Comment : OOH, while en route, ROSC prior to arrival. hypothermia protocol started by ER adn completed. normothermic (4) Paroxysmal A-fib Code(s): I48.0 - PAROXYSMAL ATRIAL FIBRILLATION Status: Chronic (5) Severe obesity Code(s): E66.01 - MORBID (SEVERE) OBESITY DUE TO EXCESS CALORIES Status: Chronic (6) CAD (coronary artery disease) Code(s): I25.10 - ATHSCL HEART DISEASE OF [place] CORONARY ARTERY W/O ANG PCTRS Status: Chronic Qualifiers: Coronary Disease-Associated Artery/Lesion type: [place] artery [place] vs. transplanted heart: [place] heart Associated angina: without angina Qualified Code(s): I25.10 - Atherosclerotic heart disease of [place] coronary artery without angina pectoris (7) Chronic pain disorder Status: Chronic (8) Dyslipidemia Code(s): E78.5 - HYPERLIPIDEMIA, UNSPECIFIED Status: Chronic (9) GERD (gastroesophageal reflux disease) Code(s): K21.9 - GASTRO-ESOPHAGEAL REFLUX DISEASE WITHOUT ESOPHAGITIS Status: Chronic Qualifiers: Esophagitis presence: without esophagitis Qualified Code(s): K21.9 - Gastro -esophageal reflux disease without esophagitis (10) Grand mal seizure disorder Code(s): G40.409 - OTH GENERALIZED EPILEPSY, NOT INTRACTABLE, W/O STAT EPI Status: Chronic Comment: sec to prior brain surgery on her left side, stable (11) HLD (hyperlipidemia) Code(s): E78.5 - HYPERLIPIDEMIA, UNSPECIFIED Status: Chronic (12) HTN (hypertension) Code(s): I10 - ESSENTIAL (PRIMARY) HYPERTENSION Status: Chronic Qualifiers: Hypertension type: essential hypertension Qualified Code(s): I10 - Essential (primary) hypertension - Plan cont current plan of care extubated and transitioning to palliative care, likely will need hospice if -: doesn't pass today * . - Discharge Day Encounter end time: 13:45
[2017-12-01] MEDS ORDERED: Morphine 4 MG/ML VIAL SLOW IVP PRN (15:29)
[2017-12-01] MEDS ORDERED: Morphine 4 MG/ML VIAL SLOW IVP SCH (15:45)
[2017-12-01] MEDS ORDERED: Scopolamine 1.5 mg/72 hour Patch TOP SCH (16:00)
[2017-12-02] MEDS: Morphine 4 MG/ML VIAL SLOW IVP PRN ×6 (03:23→11:55)
[2017-12-02 07:50] VITALS: BP 156/67; TEMP 102.3
--- NOTE | 2017-12-02 08:52 | PDOC.PN ---
- Subjective Encounter Start Date: 12/02/17 Encounter Start Time: 10:00 -: non-verbal Subjective: Patient with decreased secretions on scopolamine patch. No changes -: overnight. Some fever this morning. - Objective Resuscitation Status: Resuscitation Status DNR:Do Not Resuscitate MAR Reviewed: Yes Vital Signs & Weight: Vital Signs (12 hours) Temp Pulse Resp BP Pulse Ox 12/02/17 07:58 102.3 F H 120 H 24 H 78 L 12/02/17 07:15 102.3 F H 120 H 24 H 156/67 H 78 L Weight Admit Weight 183 lb Weight 171 lb 4.787 oz Most Recent Monitor Data Heart Rate from ECG 178 NIBP 126/52 NIBP BP-Mean 69 Respiration from ECG 31 SpO2 95 I&O: 12/01/17 12/02/17 12/03/17 06:59 06:59 06:59 Intake Total 2230 659.7 40 Output Total 1990 400 475 Balance 240 259.7 -435 Result Diagrams: 11/30/17 04:58 11/30/17 04:58 Phys Exam - Physical Examination mild respiratory distress, improved from yesterday HEENT: moist MMs coarse breath sounds bilaterally, tachypneic Cardiovascular: no significant murmur tachycardic Gastrointestinal: soft no movement of extremities, shaking head back and forth with stimulation Deviation from normal: non-verbal, unarousable Dx/Plan (1) Seizure Code(s): R56.9 - UNSPECIFIED CONVULSIONS Status: Acute Comment: Pt by history may have had a witnessed seizure that began this. brought on by hyponatremia abnd subtherapeutic dilantin. Has been sen by Dr Haddad - confirmed anoxic brain injury, stated pt is in a persisent vegetative state (2) Acute hypoxemic respiratory failure Code(s): J96.01 - ACUTE RESPIRATORY FAILURE WITH HYPOXIA Status: Acute Comment: Patient in respiratory failure off vent. Suspect will pass in next few hours or days. (3) Cardiac arrest Code(s): I46.9 - CARDIAC ARREST, CAUSE UNSPECIFIED Status: Resolved Comment : OOH, while en route, ROSC prior to arrival. hypothermia protocol started by ER adn completed. (4) Paroxysmal A-fib Code(s): I48.0 - PAROXYSMAL ATRIAL FIBRILLATION Status: Chronic (5) Severe obesity Code(s): E66.01 - MORBID (SEVERE) OBESITY DUE TO EXCESS CALORIES Status: Chronic (6) CAD (coronary artery disease) Code(s): I25.10 - ATHSCL HEART DISEASE OF [place] CORONARY ARTERY W/O ANG PCTRS Status: Chronic Qualifiers: Coronary Disease-Associated Artery/Lesion type: [place] artery [place] vs. transplanted heart: [place] heart Associated angina: without angina Qualified Code(s): I25.10 - Atherosclerotic heart disease of [place] coronary artery without angina pectoris (7) Chronic pain disorder Status: Chronic (8) Dyslipidemia Code(s): E78.5 - HYPERLIPIDEMIA, UNSPECIFIED Status: Chronic (9) GERD (gastroesophageal reflux disease) Code(s): K21.9 - GASTRO-ESOPHAGEAL REFLUX DISEASE WITHOUT ESOPHAGITIS Status: Chronic Qualifiers: Esophagitis presence: without esophagitis Qualified Code(s): K21.9 - Gastro -esophageal reflux disease without esophagitis (10) Grand mal seizure disorder Code(s): G40.409 - OTH GENERALIZED EPILEPSY, NOT INTRACTABLE, W/O STAT EPI Status: Chronic Comment: sec to prior brain surgery on her left side, stable (11) HLD (hyperlipidemia) Code(s): E78.5 - HYPERLIPIDEMIA, UNSPECIFIED Status: Chronic (12) HTN (hypertension) Code(s): I10 - ESSENTIAL (PRIMARY) HYPERTENSION Status: Chronic Qualifiers: Hypertension type: essential hypertension Qualified Code(s): I10 - Essential (primary) hypertension - Plan Patient tachycardic, tachypneic, febrile. Will likely pass soon. Will go to -: [facility] today. -: Add rectal Tylenol for fever to make more comfortable * . - Discharge Day Encounter end time: 10:10
[2017-12-02] MEDS ORDERED: Acetaminophen 650 MG Suppository PR PRN (10:07)
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
--- NOTE | 2017-12-04 08:38 | EEG ---
Referring Physician: Jerome RAYMUNDO EEG # [id number] TEST TYPE: ROUTINE PORTABLE INPATIENT REPORT: AN EEG USING THE [employer]NATIONAL TEN-TWENTY SYSTEM OF ELECTRODE PLACEMENT WAS PERFORMED. The background activity consists of a burst-suppression pattern over both hemispheres. There is no normal electrocerebral activity seen during this study. Photic stimulation did not alter the background. IMPRESSION: THIS IS AN ABNORMAL STUDY FOR THE FINDINGS OF A BURST-SUPPRESSION PATTERN WHICH CARRIES A POOR PROGNOSIS FOR RECOVERY. Experimental Display Builder: IR[employer] Manager Inpatient: EEG.MARGARETTE SIMMONS
== END 2017-12-02 13:01 | disposition hospice, inpatient (51) | DRG 207 ==
LOC: ERS 15:44 → CCU 17:37 → ONC 12-01 13:45
PROVIDERS: ADMIT Internal Medicine Infectious Disease; ATTEND Internal Medicine Infectious Disease
PROC: 5A1955Z Respiratory Ventilation, Greater than 96 Consecutive Hours (ICD-10-PCS; principal; 2017-11-26)
DX: J96.01 Acute respiratory failure with hypoxia (principal); I46.8 Cardiac arrest due to other underlying condition; E87.1 Hypo-osmolality and hyponatremia; G93.1 Anoxic brain damage, not elsewhere classified; I47.2 Ventricular tachycardia; E87.2 Acidosis; R40.3 Persistent vegetative state; I10 Essential (primary) hypertension; G25.81 Restless legs syndrome; I25.10 Atherosclerotic heart disease of native coronary artery without angina pectoris; I48.0 Paroxysmal atrial fibrillation; G40.401 Other generalized epilepsy and epileptic syndromes, not intractable, with status epilepticus; E66.01 Morbid (severe) obesity due to excess calories; Z66 Do not resuscitate; K21.9 Gastro-esophageal reflux disease without esophagitis; G89.29 Other chronic pain; F17.210 Nicotine dependence, cigarettes, uncomplicated; Z68.29 Body mass index [BMI] 29.0-29.9, adult; Z91.14 Patient's other noncompliance with medication regimen; Z88.0 Allergy status to penicillin; Z79.02 Long term (current) use of antithrombotics/antiplatelets; Z79.899 Other long term (current) drug therapy
CPT/HCPCS: 36415; 36416; 36556; 70450; 71045; 72125; 80048; 80053; 80185; 80306; 80307; 81003; 81015; 82330; 82553; 82803; 82805; 83036; 83605; 83735; 83880; 84100; 84295; 84484; 85025; 85610; 85730; 93005; 93010; 94002; 94003; 94640; 95816; 95819; 96365; 96366; 96367; 96368; 96375; 96376; A4216; A4218; C9113; J0131; J1953; J1956; J2060; J2270; J3010; J3370; J3475; J3480; J3490; J7050; J7620; S0028